=== PATIENT | male | born 1980 | race Caucasian/White ===

== ENCOUNTER 2021-01-15 20:05 | Emergency (ER) | payer SELFPAY ==
[~2021-01-15] VITALS: Ht 177.8 cm; Wt 100.0 kg
[2021-01-15] MEDS ORDERED: OXYCODONE HCL/ACETAMINOPHEN 5/325MG TABLET PO ONE (20:30)
[2021-01-16 01:38] VITALS: BP 112/66
== END 2021-01-16 01:39 | disposition home or self-care (01) ==
LOC: ER 20:05
DX: F11.23 Opioid dependence with withdrawal (principal); M79.18 Myalgia, other site
CPT/HCPCS: 73030; 73600; 93005; 99285

== ENCOUNTER 2023-02-21 12:54 | Emergency (ER) | payer MEDICAID, OTHER ==
[~2023-02-21] VITALS: Ht 170.2 cm; Wt 61.0 kg
[2023-02-21 13:04] VITALS: BP 131/76
[2023-02-21] MEDS ORDERED: SODIUM CHLORIDE 0.9% 1,000 ML IV ONE (13:15)
== END 2023-02-21 13:08 | disposition left against medical advice (07) ==
LOC: ER 12:54
DX: E11.65 Type 2 diabetes mellitus with hyperglycemia (principal); Z00.00 Encounter for general adult medical examination without abnormal findings
CPT/HCPCS: 99281; J7030

== ENCOUNTER 2023-02-21 17:54 | Inpatient (IN) | payer MEDICAID ==
[~2023-02-21] VITALS: Ht 167.6 cm; Wt 64.0 kg
[2023-02-21] MEDS ORDERED: SODIUM CHLORIDE 0.9% 1000ML BAG (SEPSIS BOLUS) IV ONE (19:30)
[2023-02-21 20:20] LABS: HEMATOCRIT. 37.1 % (42.0-52.0); HEMOGLOBIN. 11.9 g/dL (14.0-18.0); MEAN CORPUSCULAR HEMOGLOBIN 23.2 pg (28.0-32.0); MEAN CORPUSCULAR VOLUME 72.5 fL (80.0-94.0); MEAN PLATELET VOLUME 8.3 fl (7.4-10.4); PLATELET 246 x1000/uL (130-400); RED BLOOD CELL COUNT 5.12 mill/uL (4.7-6.1); RED CELL DISTRIBUTION WIDTH 16.2 % (11.6-14.6)
[2023-02-21 20:24] LABS: CLARITY URINE CLEAR (CLEAR); COLOR URINE YELLOW (YELLOW); KETONES URINE 1+ (NEGATIVE); LEUKOCYTE ESTERASE URINE NEGATIVE (NEGATIVE); NITRITE URINE NEGATIVE (NEGATIVE); OCCULT BLOOD URINE 1+ (NEGATIVE); PROTEIN URINE TRACE (NEGATIVE); SPECIFIC GRAVITY URINE 1.026 (1.005-1.030)
[2023-02-21 20:25] LABS: CHLORIDE 87 mEq/L (98-107); INR 1.3; PROTHROMBIN TIME 13.5 sec (9.6-11.0)
[2023-02-21 20:31] LABS: BETA HYDROXYBUTYRATE 3.3 mMol/L (0.0-0.3)
[2023-02-21] MEDS ORDERED: ACETAMINOPHEN 325MG TABLET PO ONE (21:00)
[2023-02-21] MEDS ORDERED: LEVOFLOXACIN 500MG PREMIX 100 ML IV ONE (21:00)
[2023-02-21] MEDS ORDERED: VANCOMYCIN 1G PREMIX 200 ML IV ONE (21:00)
[2023-02-21 21:08] LABS: PLATELET ESTIMATE NORMAL
[2023-02-21] MEDS ORDERED: POTASSIUM BICARB/CIT ACID 25 MEQ TABLET.EFF PO ONE (21:45)
[2023-02-21] MEDS ORDERED: POTASSIUM CHLORIDE 20MEQ TABLET SR PO NR (21:47)
[2023-02-21] MEDS ORDERED: INSULIN REGULAR (HUMULIN R) 300UNITS/3ML VIAL SUBCUT ONE (22:00)
[2023-02-22] MEDS ORDERED: KCL 20MEQ/100ML PREMIX 100 ML IV STA (01:07)
[2023-02-22] MEDS ORDERED: ACETAMINOPHEN 325MG TABLET PO PRN ×2 (01:15)
[2023-02-22] MEDS ORDERED: IPRATROPIUM/ALBUTEROL 0.5-3(2.5)MG/3ML NEB NEB PRN (01:15)
[2023-02-22] MEDS ORDERED: CLONIDINE 0.1MG TABLET PO PRN (01:15)
[2023-02-22] MEDS ORDERED: DOCUSATE SODIUM 100MG CAPSULE PO PRN (01:15)
[2023-02-22] MEDS ORDERED: SODIUM CHLORIDE 0.9% 1,000 ML IV SCH (01:15)
[2023-02-22] MEDS ORDERED: INSULIN REGULAR (HUMULIN R) 300UNITS/3ML VIAL SUBCUT ONE (01:15)
[2023-02-22] MEDS ORDERED: GUAIFENESIN 200MG/10ML SUGAR FREE UDC PO PRN (01:15)
[2023-02-22] MEDS ORDERED: DEXTROSE 50% WATER 50ML SYRINGE IV PRN (01:15)
[2023-02-22] MEDS ORDERED: SODIUM CHLORIDE 0.9% 1,000 ML IV ONE (01:30)
[2023-02-22 04:12] LABS: HEMATOCRIT. 33.6 % (42.0-52.0); HEMOGLOBIN. 10.8 g/dL (14.0-18.0); MEAN CORPUSCULAR HEMOGLOBIN 23.1 pg (28.0-32.0); MEAN CORPUSCULAR VOLUME 71.8 fL (80.0-94.0); MEAN PLATELET VOLUME 7.3 fl (7.4-10.4); PLATELET 182 x1000/uL (130-400); RED BLOOD CELL COUNT 4.68 mill/uL (4.7-6.1); RED CELL DISTRIBUTION WIDTH 15.6 % (11.6-14.6)
[2023-02-22 04:21] LABS: CHLORIDE 94 mEq/L (98-107)
[2023-02-22 04:30] VITALS: BP 142/85
[2023-02-22 04:31] LABS: AMYLASE 92 IU/L (25-115)
[2023-02-22 04:34] LABS: BG BASE EXCESS 6.4 mmol/L (-2.0-2.0); BG CARBOXYHEMOGLOBIN 0.4 % (0.5-1.5); BG DEOXYHEMOGLOBIN 2.6 % (0.0-5.0); BG FRACTION INSPIRED OXYGEN 21; BG HCO3 ACT 28.6 mmol/L (22.0-26.0); BG METHEMOGLOBIN 0.1 % (0.0-1.5); BG OXYGEN SATURATION 97.4 % (92.0-98.5); BG OXYHEMOGLOBIN 96.9 % (94.0-97.0); BG PCO2 32.8 mmHg (35.0-45.0); BG PH 7.559 (7.350-7.450); BG PO2 95.7 mmHg (75.0-100.0); BG SAMPLE SITE LEFT RADIAL; BG TOTAL HEMOGLOBIN 10.8 g/dL (12.0-18.0); BG VENT MODE ROOM AIR
[2023-02-22 04:55] LABS: PLATELET ESTIMATE NORMAL
[2023-02-22 05:03] LABS: FERRITIN 1504 ng/mL (22-322)
[2023-02-22 05:13] LABS: HEPATITIS B SURFACE ANTIGEN NEGATIVE
[2023-02-22 05:29] LABS: VITAMIN B12 SERUM > 2000.0 pg/mL (211-911)
[2023-02-22] MEDS ORDERED: VANCOMYCIN 1G PREMIX 200 ML IV SCH (06:30)
[2023-02-22] MEDS ORDERED: BLOOD SUGAR DIAGNOSTIC STRIP TEST SCH (06:30)
[2023-02-22] MEDS ORDERED: INSULIN LISPRO 100 UNITS/ML SUBCUT SCH (07:00)
[2023-02-22] MEDS ORDERED: KCL 20MEQ/100ML PREMIX 100 ML IV NR (08:30)
[2023-02-22] MEDS ORDERED: THIAMINE HCL 100MG TABLET PO SCH (09:00)
[2023-02-22] MEDS ORDERED: FOLIC ACID 1MG TABLET PO SCH (09:00)
[2023-02-22] MEDS ORDERED: MULTIVITAMINS,THER W-MINERALS TABLET PO SCH (09:00)
[2023-02-22] MEDS ORDERED: POTASSIUM PHOS,M-BASIC-D-BASIC 20 MMOL in DEXT 5% WATER 243.3333 ML IV NR (09:00)
[2023-02-22] MEDS ORDERED: PANTOPRAZOLE SODIUM 40 MG/VIAL IV SCH (09:00)
[2023-02-22 13:43] LABS: *AMPHETAMINES SCREEN URINE NEGATIVE (NEGATIVE); *BARBITURATES SCREEN URINE NEGATIVE (NEGATIVE); *BENZODIAZEPINES SCREEN URINE NEGATIVE (NEGATIVE); *COCAINE SCREEN URINE PRESUMTIVE POSITIVE (NEGATIVE); CANNABINOID URINE SCREEN NEGATIVE (NEGATIVE); METHADONE URINE SCREEN NEGATIVE (NEGATIVE); OPIATES URINE SCREEN PRESUMTIVE POSITIVE (NEGATIVE); PHENCYCLIDINE URINE SCREEN NEGATIVE (NEGATIVE)
[2023-02-22] MEDS ORDERED: LEVOFLOXACIN 500MG PREMIX 100 ML IV SCH (21:00)
[2023-02-24 06:11] LABS: HIV SCREEN 4G Non Reactive (Non Reactive)
== END 2023-02-22 07:11 | disposition left against medical advice (07) | DRG 720 ==
LOC: ER 17:54 → MICUSO 21:46 → EDBEDREQ 21:53 → EDBEDREQTM 21:53
PROVIDERS: ADMIT Internal Medicine; ATTEND Internal Medicine
DX: A41.9 Sepsis, unspecified organism (principal); G93.41 Metabolic encephalopathy; E11.10 Type 2 diabetes mellitus with ketoacidosis without coma; N39.0 Urinary tract infection, site not specified; D50.9 Iron deficiency anemia, unspecified; E87.6 Hypokalemia; E78.00 Pure hypercholesterolemia, unspecified; Z20.822 Contact with and (suspected) exposure to COVID-19; Z53.29 Procedure and treatment not carried out because of patient's decision for other reasons; E78.5 Hyperlipidemia, unspecified; Z79.4 Long term (current) use of insulin; Z88.0 Allergy status to penicillin
CPT/HCPCS: 36415; 36600; 71045; 74176; 76700; 80048; 80053; 80305; 81003; 82010; 82140; 82150; 82270; 82375; 82607; 82728; 82746; 82805; 82962; 83036; 83540; 83605; 83735; 84100; 84132; 84145; 85025; 86705; 86709; 86803; 87340; 87389; 87426; 87804; 93005; 99285; C9803; J1815; J1956; J3370; J3480; J3490; J7030; J7060

== ENCOUNTER 2023-02-22 12:25 | Inpatient (IN) | payer MEDICAID ==
[~2023-02-22] VITALS: Ht 160 cm; Wt 52.2 kg
[2023-02-22] MEDS ORDERED: LEVOFLOXACIN 500MG PREMIX 100 ML IV ONE (13:45)
[2023-02-22] MEDS ORDERED: LEVOFLOXACIN 250MG PREMIX 50 ML IV ONE (14:00)
[2023-02-22] MEDS ORDERED: SODIUM CHLORIDE 0.9% 1,000 ML IV ONE (14:00)
[2023-02-22] MEDS ORDERED: VANCOMYCIN 1G PREMIX 200 ML IV SCH (14:00)
[2023-02-22 18:16] LABS: HEMATOCRIT. 30.1 % (42.0-52.0); HEMOGLOBIN. 9.7 g/dL (14.0-18.0); MEAN CORPUSCULAR HEMOGLOBIN 23.3 pg (28.0-32.0); MEAN CORPUSCULAR VOLUME 72.4 fL (80.0-94.0); MEAN PLATELET VOLUME 7.9 fl (7.4-10.4); PLATELET 180 x1000/uL (130-400); RED BLOOD CELL COUNT 4.16 mill/uL (4.7-6.1); RED CELL DISTRIBUTION WIDTH 15.6 % (11.6-14.6)
[2023-02-22 18:28] LABS: CHLORIDE 99 mEq/L (98-107)
[2023-02-22 18:35] LABS: BETA HYDROXYBUTYRATE 4.6 mMol/L (0.0-0.3); ETHANOL BLOOD < 10 mg/dL
[2023-02-22 18:38] LABS: PLATELET ESTIMATE NORMAL
[2023-02-22 22:00] VITALS: BP 127/82
[2023-02-23] VITALS (7 sets, daily range): BP systolic 115–141; BP diastolic 72–86
[2023-02-23] MEDS ORDERED: DEXTROSE 50% WATER 50ML SYRINGE IV PRN (07:30)
[2023-02-23] MEDS: BLOOD SUGAR DIAGNOSTIC STRIP TEST SCH ×4 (07:58→20:33)
[2023-02-23] MEDS ORDERED: POTASSIUM CHLORIDE 20MEQ/PACKET PO NR ×2 (08:00→15:15)
[2023-02-23] MEDS ORDERED: SODIUM CHLORIDE 0.45% 1,000 ML IV ONE ×2 (08:00)
[2023-02-23] MEDS: INSULIN LISPRO 100 UNITS/ML SUBCUT SCH ×3 (08:15→20:34)
[2023-02-23] MEDS ORDERED: PANTOPRAZOLE 40MG DR TABLET PO SCH (09:00)
[2023-02-23] MEDS: KCL 20MEQ/100ML PREMIX 100 ML IV SCH ×4 (09:07→20:20)
[2023-02-23] MEDS ORDERED: GUAIFENESIN 200MG/10ML SUGAR FREE UDC PO PRN (09:30)
[2023-02-23] MEDS ORDERED: IPRATROPIUM/ALBUTEROL 0.5-3(2.5)MG/3ML NEB HHN PRN (09:30)
[2023-02-23] MEDS ORDERED: DOCUSATE SODIUM 100MG CAPSULE PO PRN (09:30)
[2023-02-23] MEDS ORDERED: ONDANSETRON HCL 4MG/2ML INJ IV PRN (09:30)
[2023-02-23] MEDS ORDERED: CLONIDINE 0.1MG TABLET PO PRN (09:30)
[2023-02-23] MEDS ORDERED: MAGNESIUM/ALUMINUM HYDROXIDE/SIMETHICONE 30ML UDC PO PRN (09:30)
[2023-02-23] MEDS ORDERED: INSULIN REGULAR (HUMULIN R) 300UNITS/3ML VIAL IV NR (10:00)
[2023-02-23 11:01] LABS: CHLORIDE 103 mEq/L (98-107)
[2023-02-23] MEDS: ENOXAPARIN 40MG/0.4ML SYR SUBCUT SCH (11:19)
[2023-02-23 13:35] LABS: CHLORIDE 98 mEq/L (98-107)
[2023-02-23 13:42] LABS: HEPATITIS B SURFACE ANTIGEN NEGATIVE
[2023-02-23 16:00] LABS: BG BASE EXCESS 7.9 mmol/L (-2.0-2.0); BG CARBOXYHEMOGLOBIN 0.3 % (0.5-1.5); BG DEOXYHEMOGLOBIN 1.5 % (0.0-5.0); BG FRACTION INSPIRED OXYGEN 21; BG HCO3 ACT 29.8 mmol/L (22.0-26.0); BG METHEMOGLOBIN 0.4 % (0.0-1.5); BG OXYGEN SATURATION 98.5 % (92.0-98.5); BG OXYHEMOGLOBIN 97.8 % (94.0-97.0); BG PCO2 31.6 mmHg (35.0-45.0); BG PH 7.592 (7.350-7.450); BG PO2 138.9 mmHg (75.0-100.0); BG SAMPLE SITE RIGHT RADIAL; BG TOTAL HEMOGLOBIN 10.3 g/dL (12.0-18.0); BG VENT MODE ROOM AIR
[2023-02-23] MEDS ORDERED: KETOROLAC 15MG/ML VIAL IV PRN (16:45)
[2023-02-23 18:25] LABS: PHOSPHORUS 0.9 mg/dL (2.5-4.9)
[2023-02-23] MEDS ORDERED: POTASSIUM PHOS,M-BASIC-D-BASIC 20 MMOL in DEXT 5% WATER 243.3333 ML IV NR (20:00)
[2023-02-23 20:31] LABS: CHLORIDE 101 mEq/L (98-107)
[2023-02-23] MEDS ORDERED: ZOLPIDEM TARTRATE 5MG TABLET PO PRN (21:00)
[2023-02-24] VITALS (11 sets, daily range): BP systolic 113–162; BP diastolic 52–86
[2023-02-24] MEDS ORDERED: LIDOCAINE HCL 1% 30ML VIAL (10MG/ML) INFIL NR
[2023-02-24] MEDS: VANCOMYCIN 750MG PREMIX 150 ML IV SCH ×3 (02:18→17:18)
[2023-02-24 06:58] LABS: BASOPHILS % 0.1 % (0.0-2.0); EOSINOPHILS % 0.1 % (0.0-5.0); HEMATOCRIT. 30.2 % (42.0-52.0); HEMOGLOBIN. 9.4 g/dL (14.0-18.0); LYMPHOCYTES % 7.5 % (20.0-50.0); MEAN CORPUSCULAR VOLUME 73.4 fL (80.0-94.0); MEAN PLATELET VOLUME 7.9 fl (7.4-10.4); MONOCYTES % 6.1 % (2.0-8.0); NEUTROPHILS % 86.2 % (40.0-76.0); PLATELET 150 x1000/uL (130-400); RED BLOOD CELL COUNT 4.11 mill/uL (4.7-6.1)
[2023-02-24] MEDS: BLOOD SUGAR DIAGNOSTIC STRIP TEST SCH ×4 (07:36→21:10)
[2023-02-24 07:42] LABS: CHLORIDE 96 mEq/L (98-107)
[2023-02-24 08:00] LABS: HDL CHOLESTEROL 20 mg/dL (40-59); LDL CHOLESTEROL 29 mg/dL (5-100); T4 FREE 0.82 ng/dL (0.76-1.46)
[2023-02-24] MEDS: PANTOPRAZOLE SODIUM 40 MG/VIAL IV SCH (10:07)
[2023-02-24] MEDS: KCL 20MEQ/100ML PREMIX 100 ML IV SCH ×4 (10:07→23:33)
[2023-02-24] MEDS: ENOXAPARIN 40MG/0.4ML SYR SUBCUT SCH (10:07)
[2023-02-24] MEDS: INSULIN LISPRO 100 UNITS/ML SUBCUT SCH ×4 (10:08→21:10)
[2023-02-24] MEDS ORDERED: POTASSIUM PHOS,M-BASIC-D-BASIC 15 MMOL in DEXT 5% WATER 245 ML IV SCH (12:00)
[2023-02-24] MEDS ORDERED: SODIUM CHLORIDE 0.9% 1,000 ML IV ONE (14:00)
[2023-02-24 14:34] LABS: CLARITY URINE CLEAR (CLEAR); COLOR URINE YELLOW (YELLOW); KETONES URINE 1+ (NEGATIVE); LEUKOCYTE ESTERASE URINE NEGATIVE (NEGATIVE); NITRITE URINE NEGATIVE (NEGATIVE); OCCULT BLOOD URINE 3+ (NEGATIVE); PROTEIN URINE NEGATIVE (NEGATIVE); SPECIFIC GRAVITY URINE 1.021 (1.005-1.030)
[2023-02-24 16:30] LABS: BG BASE EXCESS 5.1 mmol/L (-2.0-2.0); BG CARBOXYHEMOGLOBIN 0.3 % (0.5-1.5); BG DEOXYHEMOGLOBIN 2.4 % (0.0-5.0); BG HCO3 ACT 27.6 mmol/L (22.0-26.0); BG METHEMOGLOBIN 0.1 % (0.0-1.5); BG OXYGEN SATURATION 97.6 % (92.0-98.5); BG OXYHEMOGLOBIN 97.2 % (94.0-97.0); BG PCO2 32.8 mmHg (35.0-45.0); BG PH 7.543 (7.350-7.450); BG PO2 101.3 mmHg (75.0-100.0); BG SAMPLE SITE RIGHT RADIAL; BG TOTAL HEMOGLOBIN 10.2 g/dL (12.0-18.0); BG VENT MODE ROOM AIR
[2023-02-24 21:06] LABS: HEMATOCRIT 28.2 % (42.0-52.0); HEMOGLOBIN 9.2 g/dL (14.0-18.0)
[2023-02-24 21:10] LABS: CHLORIDE 102 mEq/L (98-107)
[2023-02-24] MEDS: INSULIN GLARGINE 100 UNITS/ML SUBCUT SCH (21:10)
[2023-02-24 22:28] LABS: BASOPHILS % 0.1 % (0.0-2.0); EOSINOPHILS % 0.2 % (0.0-5.0); HEMATOCRIT. 28.5 % (42.0-52.0); HEMOGLOBIN. 9.3 g/dL (14.0-18.0); LYMPHOCYTES % 14.6 % (20.0-50.0); MEAN CORPUSCULAR HEMOGLOBIN 23.6 pg (28.0-32.0); MEAN CORPUSCULAR VOLUME 72.5 fL (80.0-94.0); MEAN PLATELET VOLUME 8.4 fl (7.4-10.4); MONOCYTES % 6.2 % (2.0-8.0); NEUTROPHILS % 78.9 % (40.0-76.0); PLATELET 202 x1000/uL (130-400); RED BLOOD CELL COUNT 3.93 mill/uL (4.7-6.1); RED CELL DISTRIBUTION WIDTH 15.9 % (11.6-14.6)
[2023-02-25] VITALS: BP 132/77
[2023-02-25 01:18] LABS: HEMATOCRIT 27.6 % (42.0-52.0); HEMOGLOBIN 8.8 g/dL (14.0-18.0)
[2023-02-25] MEDS: VANCOMYCIN 750MG PREMIX 150 ML IV SCH ×3 (02:27→20:54)
[2023-02-25 04:00] VITALS: BP 125/66
[2023-02-25] MEDS: BLOOD SUGAR DIAGNOSTIC STRIP TEST SCH ×4 (07:11→20:46)
[2023-02-25 08:00] VITALS: BP 119/56
[2023-02-25] MEDS ORDERED: INSULIN REGULAR (HUMULIN R) 300UNITS/3ML VIAL IV SCH (08:00)
[2023-02-25] MEDS: INSULIN LISPRO 100 UNITS/ML SUBCUT SCH ×4 (09:46→20:56)
[2023-02-25 12:29] VITALS: BP 100/56
[2023-02-25] MEDS: LISINOPRIL 2.5MG TABLET PO SCH ×2 (12:29→17:29)
[2023-02-25] MEDS: ENOXAPARIN 40MG/0.4ML SYR SUBCUT SCH (12:35)
[2023-02-25] MEDS: ACETAMINOPHEN 325MG TABLET PO PRN (12:39)
[2023-02-25] MEDS: PANTOPRAZOLE SODIUM 40 MG/VIAL IV SCH (12:53)
[2023-02-25 16:00] VITALS: BP 112/69
[2023-02-25 16:49] LABS: BASOPHILS % 0.2 % (0.0-2.0); EOSINOPHILS % 0.1 % (0.0-5.0); HEMATOCRIT. 24.9 % (42.0-52.0); LYMPHOCYTES % 9.8 % (20.0-50.0); MEAN CORPUSCULAR HEMOGLOBIN 23.4 pg (28.0-32.0); MEAN CORPUSCULAR VOLUME 72.6 fL (80.0-94.0); MONOCYTES % 5.9 % (2.0-8.0); PLATELET 198 x1000/uL (130-400); RED BLOOD CELL COUNT 3.43 mill/uL (4.7-6.1)
[2023-02-25 16:56] LABS: CHLORIDE 104 mEq/L (98-107)
[2023-02-25 17:01] LABS: PHOSPHORUS 1.9 mg/dL (2.5-4.9)
[2023-02-25 20:00] VITALS: BP 114/62
[2023-02-25 21:32] LABS: HEMATOCRIT 25.5 % (42.0-52.0)
[2023-02-26] VITALS: BP 93/66
[2023-02-26 00:54] LABS: HEMATOCRIT 25.6 % (42.0-52.0); HEMOGLOBIN 8.1 g/dL (14.0-18.0)
[2023-02-26 04:00] VITALS: BP 114/65
[2023-02-26] MEDS: VANCOMYCIN 750MG PREMIX 150 ML IV SCH ×3 (04:19→18:17)
[2023-02-26] MEDS: BLOOD SUGAR DIAGNOSTIC STRIP TEST SCH ×4 (07:01→21:27)
[2023-02-26 07:30] LABS: BASOPHILS % 0.2 % (0.0-2.0); EOSINOPHILS % 0.2 % (0.0-5.0); HEMATOCRIT. 25.8 % (42.0-52.0); HEMOGLOBIN. 8.2 g/dL (14.0-18.0); MEAN CORPUSCULAR HEMOGLOBIN 22.9 pg (28.0-32.0); MEAN CORPUSCULAR VOLUME 72.6 fL (80.0-94.0); MEAN PLATELET VOLUME 8.7 fl (7.4-10.4); NEUTROPHILS % 83.6 % (40.0-76.0); PLATELET 197 x1000/uL (130-400); RED BLOOD CELL COUNT 3.56 mill/uL (4.7-6.1); RED CELL DISTRIBUTION WIDTH 15.6 % (11.6-14.6)
[2023-02-26 07:53] LABS: CHLORIDE 103 mEq/L (98-107)
[2023-02-26 08:00] VITALS: BP 106/63
[2023-02-26] MEDS: LISINOPRIL 2.5MG TABLET PO SCH (09:00)
[2023-02-26] MEDS: PANTOPRAZOLE SODIUM 40 MG/VIAL IV SCH (09:09)
[2023-02-26] MEDS: INSULIN LISPRO 100 UNITS/ML SUBCUT SCH ×4 (09:09→21:26)
[2023-02-26] MEDS ORDERED: POTASSIUM CHLORIDE 20MEQ TABLET SR PO NR (10:45)
[2023-02-26 12:00] VITALS: BP 104/59
[2023-02-26] MEDS: ENOXAPARIN 40MG/0.4ML SYR SUBCUT SCH (12:05)
[2023-02-26] MEDS ORDERED: POTASSIUM PHOS,M-BASIC-D-BASIC 10 MMOL in DEXT 5% WATER 246.6667 ML IV NR (13:00)
[2023-02-26] MEDS ORDERED: INSULIN REGULAR (HUMULIN R) 300UNITS/3ML VIAL IV NR (13:45)
[2023-02-26 16:00] VITALS: BP 109/53
[2023-02-26 20:00] VITALS: BP 96/56
[2023-02-26] MEDS: BACITRACIN 15GM TUBE TOP SCH (21:24)
[2023-02-26] MEDS: INSULIN GLARGINE 100 UNITS/ML SUBCUT SCH (21:25)
[2023-02-27] VITALS: BP 88/52
[2023-02-27 04:00] VITALS: BP 97/60
[2023-02-27 04:07] LABS: HIV SCREEN 4G Non Reactive (Non Reactive)
[2023-02-27 05:53] LABS: BASOPHILS % 0.1 % (0.0-2.0); EOSINOPHILS % 0.4 % (0.0-5.0); HEMATOCRIT. 22.7 % (42.0-52.0); HEMOGLOBIN. 7.3 g/dL (14.0-18.0); LYMPHOCYTES % 12.7 % (20.0-50.0); MEAN PLATELET VOLUME 7.7 fl (7.4-10.4); MONOCYTES % 4.8 % (2.0-8.0); PLATELET 214 x1000/uL (130-400); RED BLOOD CELL COUNT 3.15 mill/uL (4.7-6.1); RED CELL DISTRIBUTION WIDTH 15.8 % (11.6-14.6)
[2023-02-27 05:56] LABS: CHLORIDE 104 mEq/L (98-107)
[2023-02-27 06:12] LABS: PHOSPHORUS 1.9 mg/dL (2.5-4.9)
[2023-02-27] MEDS: BLOOD SUGAR DIAGNOSTIC STRIP TEST SCH ×4 (07:04→21:32)
[2023-02-27] MEDS: INSULIN LISPRO 100 UNITS/ML SUBCUT SCH ×4 (07:20→21:29)
[2023-02-27 08:00] VITALS: BP 101/57
[2023-02-27] MEDS ORDERED: POTASSIUM-SODIUM PHOSPHATE POWDER PACKET PO NR (08:00)
[2023-02-27] MEDS: LISINOPRIL 2.5MG TABLET PO SCH (10:05)
[2023-02-27] MEDS: FAMOTIDINE 20MG TABLET PO SCH ×2 (10:05→21:30)
[2023-02-27] MEDS: BACITRACIN 15GM TUBE TOP SCH ×2 (10:24→21:31)
[2023-02-27] MEDS: KCL 20MEQ/100ML PREMIX 100 ML IV SCH ×2 (10:26→11:00)
[2023-02-27] MEDS: ACETAMINOPHEN 325MG TABLET PO PRN (10:28)
[2023-02-27 12:00] VITALS: BP 121/65
[2023-02-27] MEDS: ENOXAPARIN 40MG/0.4ML SYR SUBCUT SCH (13:33)
[2023-02-27] MEDS ORDERED: POTASSIUM CHLORIDE 20MEQ TABLET SR PO NR (15:30)
[2023-02-27 16:00] VITALS: BP 103/53
[2023-02-27 20:00] VITALS: BP 111/54
[2023-02-27] MEDS: INSULIN GLARGINE 100 UNITS/ML SUBCUT SCH (21:30)
[2023-02-27] MEDS ORDERED: DAPTOMYCIN 400 MG in SODIUM CHLORIDE 0.9% 50 ML IV SCH (22:00)
[2023-02-28] VITALS: BP 107/57
[2023-02-28 04:00] VITALS: BP 108/58
[2023-02-28 06:33] LABS: BASOPHILS % 0.1 % (0.0-2.0); EOSINOPHILS % 0.2 % (0.0-5.0); HEMATOCRIT. 22.9 % (42.0-52.0); HEMOGLOBIN. 7.3 g/dL (14.0-18.0); LYMPHOCYTES % 10.6 % (20.0-50.0); MEAN CORPUSCULAR HEMOGLOBIN 23.3 pg (28.0-32.0); MEAN CORPUSCULAR VOLUME 73.1 fL (80.0-94.0); MEAN PLATELET VOLUME 7.9 fl (7.4-10.4); MONOCYTES % 4.9 % (2.0-8.0); NEUTROPHILS % 84.2 % (40.0-76.0); PLATELET 203 x1000/uL (130-400); RED BLOOD CELL COUNT 3.13 mill/uL (4.7-6.1); RED CELL DISTRIBUTION WIDTH 15.7 % (11.6-14.6)
[2023-02-28] MEDS: BLOOD SUGAR DIAGNOSTIC STRIP TEST SCH ×4 (06:50→20:37)
[2023-02-28 06:53] LABS: CHLORIDE 105 mEq/L (98-107)
[2023-02-28 07:01] LABS: CREATINE KINASE 57 IU/L (39-308); PHOSPHORUS 2.4 mg/dL (2.5-4.9)
[2023-02-28] MEDS: INSULIN LISPRO 100 UNITS/ML SUBCUT SCH ×4 (07:20→21:10)
[2023-02-28 08:00] VITALS: BP 111/65
[2023-02-28] MEDS ORDERED: POTASSIUM-SODIUM PHOSPHATE POWDER PACKET PO NR (08:00)
[2023-02-28] MEDS ORDERED: TETRACAINE/BENZOCAINE/BUTAMBEN 20 GM SPRAY MM ONE (08:40)
[2023-02-28] MEDS ORDERED: LIDOCAINE 2% 6ML GLYDO MM ONE (08:40)
[2023-02-28] MEDS: LISINOPRIL 2.5MG TABLET PO SCH (08:48)
[2023-02-28] MEDS: FAMOTIDINE 20MG TABLET PO SCH ×2 (08:48→21:01)
[2023-02-28] MEDS: BACITRACIN 15GM TUBE TOP SCH ×2 (09:00→21:12)
[2023-02-28] MEDS ORDERED: FENTANYL CITRATE/PF 50MCG/ML 2ML VIAL ONE (09:04)
[2023-02-28] MEDS ORDERED: DIPHENHYDRAMINE 50MG/ML VIAL ONE (09:04)
[2023-02-28] MEDS ORDERED: MIDAZOLAM HCL 2 MG/2 ML VIAL ONE (09:05)
[2023-02-28] MEDS: ENOXAPARIN 40MG/0.4ML SYR SUBCUT SCH (11:58)
[2023-02-28 12:00] VITALS: BP 115/63
[2023-02-28] MEDS ORDERED: LIDOCAINE HCL 1% 10 MG/ML 10ML VIAL ONE (12:28)
[2023-02-28] MEDS ORDERED: SODIUM CHLORIDE 0.9% 500 ML IV ONE (14:30)
[2023-02-28 16:00] VITALS: BP 114/64
[2023-02-28] MEDS: CEFAZOLIN 2,000 MG in DEXT 5% WATER 100 ML IV SCH (19:12)
[2023-02-28 20:00] VITALS: BP 127/69
[2023-02-28] MEDS: ACETAMINOPHEN 325MG TABLET PO PRN (21:02)
[2023-02-28] MEDS: INSULIN GLARGINE 100 UNITS/ML SUBCUT SCH (21:11)
[2023-03-01] VITALS: BP 118/73
[2023-03-01] MEDS: CEFAZOLIN 2,000 MG in DEXT 5% WATER 100 ML IV SCH ×3 (02:59→19:12)
[2023-03-01 03:59] VITALS: BP 110/57
[2023-03-01 05:44] LABS: BASOPHILS % 0.1 % (0.0-2.0); EOSINOPHILS % 0.2 % (0.0-5.0); HEMATOCRIT. 22.7 % (42.0-52.0); HEMOGLOBIN. 7.4 g/dL (14.0-18.0); LYMPHOCYTES % 9.9 % (20.0-50.0); MEAN CORPUSCULAR HEMOGLOBIN 23.5 pg (28.0-32.0); MEAN CORPUSCULAR VOLUME 72.6 fL (80.0-94.0); MEAN PLATELET VOLUME 7.5 fl (7.4-10.4); MONOCYTES % 6.3 % (2.0-8.0); NEUTROPHILS % 83.5 % (40.0-76.0); PLATELET 222 x1000/uL (130-400); RED BLOOD CELL COUNT 3.13 mill/uL (4.7-6.1); RED CELL DISTRIBUTION WIDTH 15.7 % (11.6-14.6)
[2023-03-01 05:53] LABS: CHLORIDE 105 mEq/L (98-107)
[2023-03-01] MEDS: BLOOD SUGAR DIAGNOSTIC STRIP TEST SCH ×4 (06:55→21:31)
[2023-03-01] MEDS: INSULIN LISPRO 100 UNITS/ML SUBCUT SCH ×4 (07:04→21:39)
[2023-03-01 08:00] VITALS: BP 104/67
[2023-03-01] MEDS: LISINOPRIL 2.5MG TABLET PO SCH (09:00)
[2023-03-01] MEDS: FAMOTIDINE 20MG TABLET PO SCH ×2 (10:31→21:37)
[2023-03-01] MEDS: BACITRACIN 15GM TUBE TOP SCH ×2 (10:31→21:38)
[2023-03-01] MEDS: ENOXAPARIN 40MG/0.4ML SYR SUBCUT SCH (10:31)
[2023-03-01 12:00] VITALS: BP 101/51
[2023-03-01] MEDS ORDERED: POTASSIUM PHOS,M-BASIC-D-BASIC 15 MMOL in DEXT 5% WATER 245 ML IV NR (15:00)
[2023-03-01 16:00] VITALS: BP 102/48
[2023-03-01 20:00] VITALS: BP 105/61
[2023-03-01] MEDS: KETOROLAC 15MG/ML VIAL IV PRN (21:37)
[2023-03-01] MEDS: INSULIN GLARGINE 100 UNITS/ML SUBCUT SCH (21:39)
[2023-03-02] VITALS (11 sets, daily range): BP systolic 87–128; BP diastolic 42–67
[2023-03-02] MEDS: CEFAZOLIN 2,000 MG in DEXT 5% WATER 100 ML IV SCH ×3 (02:05→19:13)
[2023-03-02] MEDS: KETOROLAC 15MG/ML VIAL IV PRN (04:17)
[2023-03-02 05:31] LABS: BASOPHILS % 0.1 % (0.0-2.0); EOSINOPHILS % 0.4 % (0.0-5.0); LYMPHOCYTES % 16.3 % (20.0-50.0); MEAN CORPUSCULAR HEMOGLOBIN 23.4 pg (28.0-32.0); MEAN CORPUSCULAR VOLUME 72.8 fL (80.0-94.0); MEAN PLATELET VOLUME 7.7 fl (7.4-10.4); MONOCYTES % 7.1 % (2.0-8.0); NEUTROPHILS % 76.1 % (40.0-76.0); PLATELET 210 x1000/uL (130-400); RED BLOOD CELL COUNT 2.89 mill/uL (4.7-6.1); RED CELL DISTRIBUTION WIDTH 15.7 % (11.6-14.6)
[2023-03-02 05:35] LABS: CHLORIDE 107 mEq/L (98-107)
[2023-03-02 05:39] LABS: PHOSPHORUS 2.3 mg/dL (2.5-4.9)
[2023-03-02 05:45] LABS: HEMATOCRIT. 21.1 % (42.0-52.0); HEMOGLOBIN. 6.8 g/dL (14.0-18.0)
[2023-03-02] MEDS: BLOOD SUGAR DIAGNOSTIC STRIP TEST SCH ×4 (06:50→21:00)
[2023-03-02] MEDS: INSULIN LISPRO 100 UNITS/ML SUBCUT SCH ×7 (07:20→22:04)
[2023-03-02] MEDS: FAMOTIDINE 20MG TABLET PO SCH ×2 (08:02→22:01)
[2023-03-02] MEDS: LISINOPRIL 2.5MG TABLET PO SCH (08:02)
[2023-03-02] MEDS: BACITRACIN 15GM TUBE TOP SCH ×2 (08:03→21:00)
[2023-03-02] MEDS ORDERED: POTASSIUM PHOS,M-BASIC-D-BASIC 15 MMOL in DEXT 5% WATER 245 ML IV NR (09:30)
[2023-03-02] MEDS: INSULIN GLARGINE 100 UNITS/ML SUBCUT SCH (22:04)
[2023-03-02] MEDS: ACETAMINOPHEN 325MG TABLET PO PRN (22:07)
[2023-03-03] VITALS: BP 105/59
[2023-03-03 04:00] VITALS: BP 115/65
[2023-03-03] MEDS: CEFAZOLIN 2,000 MG in DEXT 5% WATER 100 ML IV SCH ×3 (06:04→18:02)
[2023-03-03] MEDS: BLOOD SUGAR DIAGNOSTIC STRIP TEST SCH ×4 (06:04→21:00)
[2023-03-03] MEDS: INSULIN LISPRO 100 UNITS/ML SUBCUT SCH ×7 (07:20→22:17)
[2023-03-03 07:53] LABS: BASOPHILS % 0.3 % (0.0-2.0); EOSINOPHILS % 0.3 % (0.0-5.0); HEMATOCRIT. 23.9 % (42.0-52.0); HEMOGLOBIN. 7.8 g/dL (14.0-18.0); LYMPHOCYTES % 13.7 % (20.0-50.0); MEAN CORPUSCULAR HEMOGLOBIN 23.9 pg (28.0-32.0); MEAN CORPUSCULAR VOLUME 73.4 fL (80.0-94.0); MEAN PLATELET VOLUME 7.5 fl (7.4-10.4); MONOCYTES % 7.9 % (2.0-8.0); NEUTROPHILS % 77.8 % (40.0-76.0); PLATELET 229 x1000/uL (130-400); RED BLOOD CELL COUNT 3.25 mill/uL (4.7-6.1); RED CELL DISTRIBUTION WIDTH 16.2 % (11.6-14.6)
[2023-03-03 08:00] VITALS: BP 130/100
[2023-03-03] MEDS: LISINOPRIL 2.5MG TABLET PO SCH (08:23)
[2023-03-03] MEDS: FAMOTIDINE 20MG TABLET PO SCH ×2 (08:23→22:14)
[2023-03-03 08:32] LABS: CHLORIDE 103 mEq/L (98-107)
[2023-03-03] MEDS: BACITRACIN 15GM TUBE TOP SCH ×2 (09:00→22:19)
[2023-03-03 12:17] VITALS: BP 123/71
[2023-03-03 16:00] VITALS: BP 107/63
[2023-03-03 20:00] VITALS: BP 103/56
[2023-03-03] MEDS: INSULIN GLARGINE 100 UNITS/ML SUBCUT SCH (22:17)
[2023-03-03] MEDS: KETOROLAC 15MG/ML VIAL IV PRN (22:49)
[2023-03-04] VITALS (7 sets, daily range): BP systolic 94–131; BP diastolic 52–81
[2023-03-04] MEDS: CEFAZOLIN 2,000 MG in DEXT 5% WATER 100 ML IV SCH ×3 (01:30→17:41)
[2023-03-04] MEDS: INSULIN LISPRO 100 UNITS/ML SUBCUT SCH ×7 (07:20→22:00)
[2023-03-04 07:35] LABS: BASOPHILS % 0.4 % (0.0-2.0); EOSINOPHILS % 0.4 % (0.0-5.0); HEMOGLOBIN. 8.2 g/dL (14.0-18.0); LYMPHOCYTES % 18.3 % (20.0-50.0); MEAN CORPUSCULAR HEMOGLOBIN 24.1 pg (28.0-32.0); MEAN CORPUSCULAR VOLUME 73.4 fL (80.0-94.0); MEAN PLATELET VOLUME 7.2 fl (7.4-10.4); MONOCYTES % 7.8 % (2.0-8.0); NEUTROPHILS % 73.1 % (40.0-76.0); PLATELET 257 x1000/uL (130-400); RED CELL DISTRIBUTION WIDTH 16.2 % (11.6-14.6)
[2023-03-04] MEDS: BLOOD SUGAR DIAGNOSTIC STRIP TEST SCH ×4 (07:35→21:49)
[2023-03-04 07:53] LABS: CHLORIDE 105 mEq/L (98-107)
[2023-03-04 08:01] LABS: PHOSPHORUS 2.7 mg/dL (2.5-4.9)
[2023-03-04] MEDS: FAMOTIDINE 20MG TABLET PO SCH ×2 (08:59→20:41)
[2023-03-04] MEDS: BACITRACIN 15GM TUBE TOP SCH ×2 (08:59→21:59)
[2023-03-04] MEDS: LISINOPRIL 2.5MG TABLET PO SCH (08:59)
[2023-03-04] MEDS: KETOROLAC 15MG/ML VIAL IV PRN (11:08)
[2023-03-04] MEDS ORDERED: KETOROLAC 15MG/ML VIAL IV PRN (17:50)
[2023-03-04] MEDS: DICLOFENAC SODIUM 75MG DR (EC) TABLET PO SCH (20:40)
[2023-03-04] MEDS: LIDOCAINE 5% PATCH TOP PRN (20:50)
[2023-03-04] MEDS: INSULIN GLARGINE 100 UNITS/ML SUBCUT SCH (22:01)
[2023-03-05] MEDS: CEFAZOLIN 2,000 MG in DEXT 5% WATER 100 ML IV SCH ×3 (01:38→19:41)
[2023-03-05 04:00] VITALS: BP 101/63
[2023-03-05 06:06] LABS: HEMATOCRIT 23.4 % (42.0-52.0); HEMOGLOBIN 7.6 g/dL (14.0-18.0); MEAN CORPUSCULAR VOLUME 74.1 fL (80.0-94.0); PLATELET 258 x1000/uL (130-400); RED BLOOD CELL COUNT 3.15 mill/uL (4.7-6.1); RED CELL DISTRIBUTION WIDTH 16.2 % (11.6-14.6)
[2023-03-05 06:15] LABS: CHLORIDE 103 mEq/L (98-107)
[2023-03-05] MEDS: BLOOD SUGAR DIAGNOSTIC STRIP TEST SCH ×4 (06:43→22:10)
[2023-03-05] MEDS: INSULIN LISPRO 100 UNITS/ML SUBCUT SCH ×7 (07:05→22:45)
[2023-03-05 08:00] VITALS: BP 107/71
[2023-03-05] MEDS: LISINOPRIL 2.5MG TABLET PO SCH (09:00)
[2023-03-05] MEDS: FAMOTIDINE 20MG TABLET PO SCH ×2 (10:10→22:42)
[2023-03-05] MEDS: DICLOFENAC SODIUM 75MG DR (EC) TABLET PO SCH ×2 (10:13→22:42)
[2023-03-05 12:00] VITALS: BP 119/74
[2023-03-05] MEDS: BACITRACIN 15GM TUBE TOP SCH ×2 (13:27→22:43)
[2023-03-05 16:00] VITALS: BP 98/69
[2023-03-05 20:00] VITALS: BP 113/68
[2023-03-05] MEDS: LIDOCAINE 5% PATCH TOP PRN (22:44)
[2023-03-05] MEDS: INSULIN GLARGINE 100 UNITS/ML SUBCUT SCH (22:46)
[2023-03-06] VITALS: BP 112/68
[2023-03-06] MEDS: CEFAZOLIN 2,000 MG in DEXT 5% WATER 100 ML IV SCH ×3 (01:42→17:14)
[2023-03-06 04:00] VITALS: BP 113/72
[2023-03-06] MEDS: INSULIN LISPRO 100 UNITS/ML SUBCUT SCH ×7 (06:18→23:19)
[2023-03-06] MEDS: BLOOD SUGAR DIAGNOSTIC STRIP TEST SCH ×4 (06:19→21:00)
[2023-03-06 06:43] LABS: BASOPHILS % 0.5 % (0.0-2.0); EOSINOPHILS % 1.2 % (0.0-5.0); HEMATOCRIT. 23.8 % (42.0-52.0); HEMOGLOBIN. 7.8 g/dL (14.0-18.0); LYMPHOCYTES % 18.6 % (20.0-50.0); MEAN CORPUSCULAR HEMOGLOBIN 24.3 pg (28.0-32.0); MEAN CORPUSCULAR VOLUME 74.1 fL (80.0-94.0); MEAN PLATELET VOLUME 7.4 fl (7.4-10.4); MONOCYTES % 6.6 % (2.0-8.0); NEUTROPHILS % 73.1 % (40.0-76.0); PLATELET 255 x1000/uL (130-400); RED BLOOD CELL COUNT 3.22 mill/uL (4.7-6.1); RED CELL DISTRIBUTION WIDTH 16.6 % (11.6-14.6)
[2023-03-06 07:20] LABS: CHLORIDE 107 mEq/L (98-107)
[2023-03-06] MEDS: LISINOPRIL 2.5MG TABLET PO SCH (07:54)
[2023-03-06] MEDS: FAMOTIDINE 20MG TABLET PO SCH ×2 (07:54→22:35)
[2023-03-06] MEDS: DICLOFENAC SODIUM 75MG DR (EC) TABLET PO SCH ×2 (07:54→22:35)
[2023-03-06] MEDS: BACITRACIN 15GM TUBE TOP SCH ×2 (07:55→22:36)
[2023-03-06 08:00] VITALS: BP 115/67
[2023-03-06 12:00] VITALS: BP 133/77
[2023-03-06] MEDS: ACETAMINOPHEN 325MG TABLET PO PRN ×2 (14:39→22:35)
[2023-03-06 16:00] VITALS: BP 125/77
[2023-03-06 20:00] VITALS: BP 115/51
[2023-03-06] MEDS: LIDOCAINE 5% PATCH TOP PRN (22:35)
[2023-03-06] MEDS: INSULIN GLARGINE 100 UNITS/ML SUBCUT SCH (23:18)
[2023-03-07] VITALS: BP 113/63
[2023-03-07 04:00] VITALS: BP 103/53
[2023-03-07] MEDS: CEFAZOLIN 2,000 MG in DEXT 5% WATER 100 ML IV SCH ×3 (04:03→17:42)
[2023-03-07 06:29] LABS: HEMATOCRIT 22.4 % (42.0-52.0); HEMOGLOBIN 7.2 g/dL (14.0-18.0); MEAN CORPUSCULAR HEMOGLOBIN 24.1 pg (28.0-32.0); MEAN CORPUSCULAR VOLUME 74.5 fL (80.0-94.0); PLATELET 233 x1000/uL (130-400); RED BLOOD CELL COUNT 3.01 mill/uL (4.7-6.1); RED CELL DISTRIBUTION WIDTH 17.1 % (11.6-14.6)
[2023-03-07] MEDS: BLOOD SUGAR DIAGNOSTIC STRIP TEST SCH ×4 (06:36→21:48)
[2023-03-07] MEDS: INSULIN LISPRO 100 UNITS/ML SUBCUT SCH ×7 (06:37→21:47)
[2023-03-07 06:44] LABS: CHLORIDE 104 mEq/L (98-107)
[2023-03-07 08:00] VITALS: BP 108/56
[2023-03-07] MEDS: LISINOPRIL 2.5MG TABLET PO SCH (08:48)
[2023-03-07] MEDS: FAMOTIDINE 20MG TABLET PO SCH ×2 (08:55→21:46)
[2023-03-07] MEDS: BACITRACIN 15GM TUBE TOP SCH ×2 (08:55→21:48)
[2023-03-07] MEDS: DICLOFENAC SODIUM 75MG DR (EC) TABLET PO SCH ×2 (09:09→21:46)
[2023-03-07 11:20] VITALS: BP 112/46
[2023-03-07 16:00] VITALS: BP 118/55
[2023-03-07 20:00] VITALS: BP 120/64
[2023-03-07] MEDS: LIDOCAINE 5% PATCH TOP PRN (21:46)
[2023-03-07] MEDS: ACETAMINOPHEN 325MG TABLET PO PRN (21:54)
[2023-03-07] MEDS ORDERED: INSULIN GLARGINE 100 UNITS/ML SUBCUT SCH (22:00)
[2023-03-08] VITALS: BP 120/61
[2023-03-08] MEDS: CEFAZOLIN 2,000 MG in DEXT 5% WATER 100 ML IV SCH ×2 (02:31→10:00)
[2023-03-08 04:00] VITALS: BP 118/64
[2023-03-08] MEDS: ACETAMINOPHEN 325MG TABLET PO PRN ×2 (06:37→16:20)
[2023-03-08] MEDS: BLOOD SUGAR DIAGNOSTIC STRIP TEST SCH ×4 (07:08→21:35)
[2023-03-08] MEDS: INSULIN LISPRO 100 UNITS/ML SUBCUT SCH ×7 (07:08→21:41)
[2023-03-08 08:00] VITALS: BP 128/75
[2023-03-08] MEDS: FAMOTIDINE 20MG TABLET PO SCH ×2 (08:18→21:30)
[2023-03-08] MEDS: DICLOFENAC SODIUM 75MG DR (EC) TABLET PO SCH ×2 (08:18→21:34)
[2023-03-08] MEDS: LISINOPRIL 2.5MG TABLET PO SCH (08:19)
[2023-03-08] MEDS: BACITRACIN 15GM TUBE TOP SCH ×2 (09:00→21:35)
[2023-03-08 09:06] LABS: HEMATOCRIT 24.6 % (42.0-52.0); MEAN CORPUSCULAR HEMOGLOBIN 24.5 pg (28.0-32.0); MEAN CORPUSCULAR VOLUME 75.5 fL (80.0-94.0); PLATELET 263 x1000/uL (130-400); RED BLOOD CELL COUNT 3.26 mill/uL (4.7-6.1); RED CELL DISTRIBUTION WIDTH 17.4 % (11.6-14.6)
[2023-03-08 09:16] LABS: CHLORIDE 106 mEq/L (98-107)
[2023-03-08 12:00] VITALS: BP 119/67
[2023-03-08 16:00] VITALS: BP 127/82
[2023-03-08 20:00] VITALS: BP 94/59
[2023-03-08] MEDS: LIDOCAINE 5% PATCH TOP PRN (21:35)
[2023-03-08] MEDS: INSULIN GLARGINE 100 UNITS/ML SUBCUT SCH (21:41)
[2023-03-09] VITALS: BP 118/58
[2023-03-09 04:00] VITALS: BP 119/67
[2023-03-09] MEDS: INSULIN LISPRO 100 UNITS/ML SUBCUT SCH ×7 (06:05→21:00)
[2023-03-09] MEDS: BLOOD SUGAR DIAGNOSTIC STRIP TEST SCH ×4 (07:54→21:00)
[2023-03-09] MEDS: INSULIN GLARGINE 100 UNITS/ML SUBCUT SCH ×2 (07:56→22:48)
[2023-03-09 08:00] VITALS: BP 129/57
[2023-03-09] MEDS: CEFAZOLIN 2,000 MG in DEXT 5% WATER 100 ML IV SCH ×3 (09:42→17:41)
[2023-03-09] MEDS: LISINOPRIL 2.5MG TABLET PO SCH (09:44)
[2023-03-09] MEDS: FAMOTIDINE 20MG TABLET PO SCH ×2 (09:44→22:42)
[2023-03-09] MEDS: DICLOFENAC SODIUM 75MG DR (EC) TABLET PO SCH ×2 (09:44→21:00)
[2023-03-09] MEDS: BACITRACIN 15GM TUBE TOP SCH ×2 (09:45→21:00)
[2023-03-09 10:21] LABS: HEMATOCRIT 26.8 % (42.0-52.0); HEMOGLOBIN 8.5 g/dL (14.0-18.0); MEAN CORPUSCULAR HEMOGLOBIN 24.1 pg (28.0-32.0); MEAN CORPUSCULAR VOLUME 75.5 fL (80.0-94.0); PLATELET 286 x1000/uL (130-400); RED BLOOD CELL COUNT 3.55 mill/uL (4.7-6.1); RED CELL DISTRIBUTION WIDTH 17.8 % (11.6-14.6)
[2023-03-09 11:03] LABS: CHLORIDE 108 mEq/L (98-107)
[2023-03-09 12:00] VITALS: BP 113/58
[2023-03-09 16:00] VITALS: BP 119/57
[2023-03-09 20:00] VITALS: BP 98/55
[2023-03-09] MEDS: ENOXAPARIN 40MG/0.4ML SYR SUBCUT SCH (21:00)
[2023-03-10] VITALS: BP 123/53
[2023-03-10] MEDS: CEFAZOLIN 2,000 MG in DEXT 5% WATER 100 ML IV SCH ×3 (02:00→17:57)
[2023-03-10 04:00] VITALS: BP 122/69
[2023-03-10] MEDS: BLOOD SUGAR DIAGNOSTIC STRIP TEST SCH ×4 (07:07→21:00)
[2023-03-10] MEDS ORDERED: INSULIN LISPRO 100 UNITS/ML SUBCUT SCH (07:20)
[2023-03-10] MEDS: INSULIN LISPRO 100 UNITS/ML SUBCUT SCH ×5 (07:50→17:31)
[2023-03-10 08:00] VITALS: BP 119/76
[2023-03-10] MEDS: BACITRACIN 15GM TUBE TOP SCH ×2 (09:00→21:00)
[2023-03-10] MEDS: DICLOFENAC SODIUM 75MG DR (EC) TABLET PO SCH (09:34)
[2023-03-10] MEDS: FAMOTIDINE 20MG TABLET PO SCH ×2 (09:34→21:00)
[2023-03-10] MEDS: LISINOPRIL 2.5MG TABLET PO SCH (09:35)
[2023-03-10 11:51] LABS: HEMATOCRIT 26.8 % (42.0-52.0); HEMOGLOBIN 8.6 g/dL (14.0-18.0); MEAN CORPUSCULAR HEMOGLOBIN 24.5 pg (28.0-32.0); MEAN CORPUSCULAR VOLUME 76.2 fL (80.0-94.0); PLATELET 266 x1000/uL (130-400); RED BLOOD CELL COUNT 3.52 mill/uL (4.7-6.1)
[2023-03-10 11:53] LABS: CHLORIDE 104 mEq/L (98-107)
[2023-03-10 12:00] VITALS: BP 117/65
[2023-03-10 16:00] VITALS: BP 109/52
[2023-03-10] MEDS: ACETAMINOPHEN 325MG TABLET PO PRN (23:43)
[2023-03-10] MEDS: LIDOCAINE 5% PATCH TOP PRN (23:43)
[2023-03-11] VITALS: BP 115/65
[2023-03-11] MEDS: CEFAZOLIN 2,000 MG in DEXT 5% WATER 100 ML IV SCH ×3 (01:06→17:58)
[2023-03-11 04:00] VITALS: BP 108/72
[2023-03-11] MEDS: DICLOFENAC SODIUM 75MG DR (EC) TABLET PO SCH ×3 (05:49→21:58)
[2023-03-11] MEDS: ENOXAPARIN 40MG/0.4ML SYR SUBCUT SCH ×2 (05:49→21:56)
[2023-03-11] MEDS: INSULIN GLARGINE 100 UNITS/ML SUBCUT SCH ×2 (05:52→21:57)
[2023-03-11] MEDS: INSULIN LISPRO 100 UNITS/ML SUBCUT SCH ×8 (05:53→22:08)
[2023-03-11] MEDS: BLOOD SUGAR DIAGNOSTIC STRIP TEST SCH ×4 (06:36→21:00)
[2023-03-11 08:00] VITALS: BP 109/64
[2023-03-11] MEDS: FAMOTIDINE 20MG TABLET PO SCH ×2 (08:35→21:58)
[2023-03-11] MEDS: LISINOPRIL 2.5MG TABLET PO SCH (08:38)
[2023-03-11] MEDS: BACITRACIN 15GM TUBE TOP SCH (09:00)
[2023-03-11 12:00] VITALS: BP 114/62
[2023-03-11 13:37] LABS: HEMATOCRIT 25.3 % (42.0-52.0); HEMOGLOBIN 8.1 g/dL (14.0-18.0); MEAN CORPUSCULAR HEMOGLOBIN 24.6 pg (28.0-32.0); PLATELET 290 x1000/uL (130-400); RED BLOOD CELL COUNT 3.29 mill/uL (4.7-6.1); RED CELL DISTRIBUTION WIDTH 18.5 % (11.6-14.6)
[2023-03-11 13:54] LABS: CHLORIDE 104 mEq/L (98-107)
[2023-03-11 16:00] VITALS: BP 100/52
[2023-03-11] MEDS: LIDOCAINE 5% PATCH TOP PRN (16:40)
[2023-03-11] MEDS: ACETAMINOPHEN 325MG TABLET PO PRN (16:40)
[2023-03-11 20:00] VITALS: BP 100/51
[2023-03-12] MEDS: BACITRACIN 15GM TUBE TOP SCH ×3 (00:21→22:06)
[2023-03-12] MEDS: ACETAMINOPHEN 325MG TABLET PO PRN (00:27)
[2023-03-12] MEDS: LIDOCAINE 5% PATCH TOP PRN (00:28)
[2023-03-12] MEDS: CEFAZOLIN 2,000 MG in DEXT 5% WATER 100 ML IV SCH ×3 (02:27→18:03)
[2023-03-12 06:02] LABS: CHLORIDE 103 mEq/L (98-107)
[2023-03-12 06:09] LABS: HEMATOCRIT. 26.9 % (42.0-52.0); HEMOGLOBIN. 8.7 g/dL (14.0-18.0); MEAN CORPUSCULAR HEMOGLOBIN 24.8 pg (28.0-32.0); MEAN CORPUSCULAR VOLUME 76.5 fL (80.0-94.0); MEAN PLATELET VOLUME 7.7 fl (7.4-10.4); PLATELET 300 x1000/uL (130-400); RED BLOOD CELL COUNT 3.52 mill/uL (4.7-6.1); RED CELL DISTRIBUTION WIDTH 18.7 % (11.6-14.6)
[2023-03-12 06:12] LABS: PHOSPHORUS 2.7 mg/dL (2.5-4.9)
[2023-03-12] MEDS: INSULIN LISPRO 100 UNITS/ML SUBCUT SCH ×7 (07:20→22:13)
[2023-03-12] MEDS: BLOOD SUGAR DIAGNOSTIC STRIP TEST SCH ×4 (07:49→21:00)
[2023-03-12 08:00] VITALS: BP 113/65
[2023-03-12] MEDS: FAMOTIDINE 20MG TABLET PO SCH ×2 (08:28→22:05)
[2023-03-12] MEDS: LISINOPRIL 2.5MG TABLET PO SCH (08:28)
[2023-03-12] MEDS: DICLOFENAC SODIUM 75MG DR (EC) TABLET PO SCH ×2 (08:28→22:05)
[2023-03-12 12:00] VITALS: BP 109/65
[2023-03-12 16:00] VITALS: BP 111/68
[2023-03-12 18:50] LABS: PLATELET ESTIMATE NORMAL
[2023-03-12 20:00] VITALS: BP 115/51
[2023-03-12] MEDS: INSULIN GLARGINE 100 UNITS/ML SUBCUT SCH (22:00)
[2023-03-12] MEDS: ENOXAPARIN 40MG/0.4ML SYR SUBCUT SCH (22:05)
[2023-03-13] VITALS: BP 110/56
[2023-03-13] MEDS: CEFAZOLIN 2,000 MG in DEXT 5% WATER 100 ML IV SCH ×3 (02:00→18:09)
[2023-03-13 04:00] VITALS: BP 111/65
[2023-03-13 06:02] LABS: HEMATOCRIT 26.4 % (42.0-52.0); HEMOGLOBIN 8.6 g/dL (14.0-18.0); MEAN CORPUSCULAR HEMOGLOBIN 25.1 pg (28.0-32.0); MEAN CORPUSCULAR VOLUME 77.2 fL (80.0-94.0); PLATELET 324 x1000/uL (130-400); RED BLOOD CELL COUNT 3.42 mill/uL (4.7-6.1); RED CELL DISTRIBUTION WIDTH 19.6 % (11.6-14.6)
[2023-03-13] MEDS: BLOOD SUGAR DIAGNOSTIC STRIP TEST SCH ×4 (06:49→20:14)
[2023-03-13 06:51] LABS: CHLORIDE 105 mEq/L (98-107)
[2023-03-13] MEDS: INSULIN LISPRO 100 UNITS/ML SUBCUT SCH ×7 (07:06→20:13)
[2023-03-13] MEDS: DICLOFENAC SODIUM 75MG DR (EC) TABLET PO SCH ×2 (07:59→20:06)
[2023-03-13 08:00] VITALS: BP 113/77
[2023-03-13] MEDS: LISINOPRIL 2.5MG TABLET PO SCH (08:00)
[2023-03-13] MEDS: FAMOTIDINE 20MG TABLET PO SCH ×2 (08:00→20:06)
[2023-03-13] MEDS: BACITRACIN 15GM TUBE TOP SCH ×2 (08:01→20:13)
[2023-03-13 12:00] VITALS: BP 101/61
[2023-03-13 16:00] VITALS: BP 111/67
[2023-03-13 20:00] VITALS: BP 98/41
[2023-03-13] MEDS: ENOXAPARIN 40MG/0.4ML SYR SUBCUT SCH (20:06)
[2023-03-13] MEDS: INSULIN GLARGINE 100 UNITS/ML SUBCUT SCH (20:12)
[2023-03-14] VITALS: BP 123/71
[2023-03-14 04:00] VITALS: BP 108/62
[2023-03-14] MEDS: INSULIN LISPRO 100 UNITS/ML SUBCUT SCH ×4 (06:13→21:38)
[2023-03-14] MEDS: BLOOD SUGAR DIAGNOSTIC STRIP TEST SCH ×4 (07:20→20:57)
[2023-03-14 07:37] LABS: HEMATOCRIT 28.2 % (42.0-52.0); MEAN CORPUSCULAR HEMOGLOBIN 24.8 pg (28.0-32.0); MEAN CORPUSCULAR VOLUME 77.7 fL (80.0-94.0); PLATELET 350 x1000/uL (130-400); RED BLOOD CELL COUNT 3.63 mill/uL (4.7-6.1); RED CELL DISTRIBUTION WIDTH 19.8 % (11.6-14.6)
[2023-03-14 08:00] VITALS: BP 111/75
[2023-03-14] MEDS: DICLOFENAC SODIUM 75MG DR (EC) TABLET PO SCH ×2 (08:59→20:39)
[2023-03-14] MEDS: LISINOPRIL 2.5MG TABLET PO SCH (08:59)
[2023-03-14] MEDS: BACITRACIN 15GM TUBE TOP SCH ×2 (08:59→20:44)
[2023-03-14] MEDS: FAMOTIDINE 20MG TABLET PO SCH ×2 (08:59→20:40)
[2023-03-14 09:15] LABS: CHLORIDE 102 mEq/L (98-107)
[2023-03-14] MEDS: CEFAZOLIN 2,000 MG in DEXT 5% WATER 100 ML IV SCH ×2 (10:00→18:04)
[2023-03-14 12:00] VITALS: BP 100/67
[2023-03-14 16:00] VITALS: BP 131/83
[2023-03-14 20:00] VITALS: BP 100/65
[2023-03-14] MEDS: ACETAMINOPHEN 325MG TABLET PO PRN (20:40)
[2023-03-14] MEDS: ENOXAPARIN 40MG/0.4ML SYR SUBCUT SCH (20:44)
[2023-03-14] MEDS: LIDOCAINE 5% PATCH TOP PRN (21:41)
[2023-03-14] MEDS: INSULIN GLARGINE 100 UNITS/ML SUBCUT SCH (21:46)
[2023-03-15] VITALS: BP 95/55
[2023-03-15] MEDS: CEFAZOLIN 2,000 MG in DEXT 5% WATER 100 ML IV SCH ×3 (01:29→18:16)
[2023-03-15 04:00] VITALS: BP 115/79
[2023-03-15] MEDS: INSULIN LISPRO 100 UNITS/ML SUBCUT SCH ×7 (07:00→22:18)
[2023-03-15 07:04] LABS: HEMATOCRIT 28.4 % (42.0-52.0); HEMOGLOBIN 9.2 g/dL (14.0-18.0); MEAN CORPUSCULAR HEMOGLOBIN 25.2 pg (28.0-32.0); MEAN CORPUSCULAR VOLUME 78.2 fL (80.0-94.0); PLATELET 347 x1000/uL (130-400); RED BLOOD CELL COUNT 3.63 mill/uL (4.7-6.1); RED CELL DISTRIBUTION WIDTH 20.3 % (11.6-14.6)
[2023-03-15 07:39] LABS: CHLORIDE 105 mEq/L (98-107)
[2023-03-15 08:00] VITALS: BP 107/76
[2023-03-15] MEDS: BLOOD SUGAR DIAGNOSTIC STRIP TEST SCH ×4 (08:20→21:53)
[2023-03-15] MEDS: FAMOTIDINE 20MG TABLET PO SCH ×2 (08:43→21:52)
[2023-03-15] MEDS: DICLOFENAC SODIUM 75MG DR (EC) TABLET PO SCH ×2 (08:43→22:16)
[2023-03-15] MEDS: LISINOPRIL 2.5MG TABLET PO SCH (08:48)
[2023-03-15] MEDS: BACITRACIN 15GM TUBE TOP SCH ×2 (09:00→21:53)
[2023-03-15 12:00] VITALS: BP 107/69
[2023-03-15 16:00] VITALS: BP 101/68
[2023-03-15 20:00] VITALS: BP 100/72
[2023-03-15] MEDS: ENOXAPARIN 40MG/0.4ML SYR SUBCUT SCH (21:53)
[2023-03-15] MEDS: INSULIN GLARGINE 100 UNITS/ML SUBCUT SCH (22:17)
[2023-03-16] VITALS: BP 101/64
[2023-03-16] MEDS: CEFAZOLIN 2,000 MG in DEXT 5% WATER 100 ML IV SCH ×3 (01:22→17:32)
[2023-03-16 04:00] VITALS: BP 103/64
[2023-03-16] MEDS: LIDOCAINE 5% PATCH TOP PRN (04:22)
[2023-03-16 06:36] LABS: CHLORIDE 104 mEq/L (98-107)
[2023-03-16 06:47] LABS: HEMATOCRIT 28.8 % (42.0-52.0); MEAN CORPUSCULAR HEMOGLOBIN 24.5 pg (28.0-32.0); MEAN CORPUSCULAR VOLUME 78.2 fL (80.0-94.0); PLATELET 389 x1000/uL (130-400); RED BLOOD CELL COUNT 3.68 mill/uL (4.7-6.1); RED CELL DISTRIBUTION WIDTH 20.5 % (11.6-14.6)
[2023-03-16] MEDS: BLOOD SUGAR DIAGNOSTIC STRIP TEST SCH ×4 (06:57→21:00)
[2023-03-16] MEDS: INSULIN LISPRO 100 UNITS/ML SUBCUT SCH ×7 (07:52→21:56)
[2023-03-16 08:00] VITALS: BP 104/73
[2023-03-16] MEDS: LISINOPRIL 2.5MG TABLET PO SCH (09:00)
[2023-03-16] MEDS: FAMOTIDINE 20MG TABLET PO SCH ×2 (09:26→21:48)
[2023-03-16] MEDS: DICLOFENAC SODIUM 75MG DR (EC) TABLET PO SCH ×2 (09:26→21:48)
[2023-03-16 12:00] VITALS: BP 107/93
[2023-03-16] MEDS: BACITRACIN 15GM TUBE TOP SCH ×2 (13:30→21:00)
[2023-03-16 16:00] VITALS: BP 116/75
[2023-03-16 20:00] VITALS: BP 105/76
[2023-03-16] MEDS: ENOXAPARIN 40MG/0.4ML SYR SUBCUT SCH (21:48)
[2023-03-16] MEDS: INSULIN GLARGINE 100 UNITS/ML SUBCUT SCH (21:57)
[2023-03-17] MEDS: CEFAZOLIN 2,000 MG in DEXT 5% WATER 100 ML IV SCH ×3 (02:00→18:21)
[2023-03-17 04:00] VITALS: BP 115/81
[2023-03-17] MEDS: INSULIN LISPRO 100 UNITS/ML SUBCUT SCH ×6 (06:15→21:09)
[2023-03-17] MEDS: BLOOD SUGAR DIAGNOSTIC STRIP TEST SCH ×4 (06:15→21:04)
[2023-03-17 08:00] VITALS: BP 106/72
[2023-03-17] MEDS: BACITRACIN 15GM TUBE TOP SCH (09:00)
[2023-03-17] MEDS: LISINOPRIL 2.5MG TABLET PO SCH (09:00)
[2023-03-17] MEDS: FAMOTIDINE 20MG TABLET PO SCH ×2 (09:53→21:03)
[2023-03-17] MEDS: DICLOFENAC SODIUM 75MG DR (EC) TABLET PO SCH ×2 (09:53→21:03)
[2023-03-17 12:00] VITALS: BP 106/90
[2023-03-17] MEDS: ACETAMINOPHEN 325MG TABLET PO PRN (14:58)
[2023-03-17 16:00] VITALS: BP 102/70
[2023-03-17] MEDS: ENOXAPARIN 40MG/0.4ML SYR SUBCUT SCH (21:05)
[2023-03-17] MEDS: LIDOCAINE 5% PATCH TOP PRN (21:07)
[2023-03-17] MEDS: INSULIN GLARGINE 100 UNITS/ML SUBCUT SCH (21:10)
[2023-03-18] VITALS: BP 104/65
[2023-03-18] MEDS: CEFAZOLIN 2,000 MG in DEXT 5% WATER 100 ML IV SCH ×3 (01:40→18:42)
[2023-03-18 04:00] VITALS: BP 105/68
[2023-03-18] MEDS: BLOOD SUGAR DIAGNOSTIC STRIP TEST SCH ×4 (06:13→21:00)
[2023-03-18] MEDS: INSULIN LISPRO 100 UNITS/ML SUBCUT SCH ×6 (06:13→18:50)
[2023-03-18 08:00] VITALS: BP 107/73
[2023-03-18] MEDS: LISINOPRIL 2.5MG TABLET PO SCH (08:48)
[2023-03-18] MEDS: FAMOTIDINE 20MG TABLET PO SCH ×2 (08:48→22:03)
[2023-03-18] MEDS: DICLOFENAC SODIUM 75MG DR (EC) TABLET PO SCH ×2 (08:48→22:03)
[2023-03-18] MEDS: BACITRACIN 15GM TUBE TOP SCH ×2 (09:00→21:00)
[2023-03-18 12:00] VITALS: BP 104/66
[2023-03-18 16:00] VITALS: BP 106/20
[2023-03-18] MEDS: ACETAMINOPHEN 325MG TABLET PO PRN (18:43)
[2023-03-18 20:00] VITALS: BP 111/73
[2023-03-18] MEDS: ENOXAPARIN 40MG/0.4ML SYR SUBCUT SCH (22:02)
[2023-03-19] VITALS: BP 111/63
[2023-03-19] MEDS: INSULIN LISPRO 100 UNITS/ML SUBCUT SCH ×8 (00:07→21:17)
[2023-03-19] MEDS: INSULIN GLARGINE 100 UNITS/ML SUBCUT SCH ×2 (00:08→21:18)
[2023-03-19] MEDS: LIDOCAINE 5% PATCH TOP PRN (01:13)
[2023-03-19] MEDS: CEFAZOLIN 2,000 MG in DEXT 5% WATER 100 ML IV SCH ×3 (01:50→18:00)
[2023-03-19 04:00] VITALS: BP 123/76
[2023-03-19] MEDS: ACETAMINOPHEN 325MG TABLET PO PRN ×2 (04:52→12:48)
[2023-03-19 06:00] LABS: HEMATOCRIT 28.7 % (42.0-52.0); HEMOGLOBIN 9.4 g/dL (14.0-18.0); MEAN CORPUSCULAR HEMOGLOBIN 25.9 pg (28.0-32.0); MEAN CORPUSCULAR VOLUME 78.8 fL (80.0-94.0); PLATELET 371 x1000/uL (130-400); RED BLOOD CELL COUNT 3.64 mill/uL (4.7-6.1); RED CELL DISTRIBUTION WIDTH 22.5 % (11.6-14.6)
[2023-03-19 06:10] LABS: CHLORIDE 101 mEq/L (98-107)
[2023-03-19] MEDS: BLOOD SUGAR DIAGNOSTIC STRIP TEST SCH ×4 (06:39→20:43)
[2023-03-19 08:00] VITALS: BP 107/74
[2023-03-19] MEDS: BACITRACIN 15GM TUBE TOP SCH ×2 (09:00→21:00)
[2023-03-19] MEDS: LISINOPRIL 2.5MG TABLET PO SCH (09:00)
[2023-03-19] MEDS: FAMOTIDINE 20MG TABLET PO SCH ×2 (09:28→21:09)
[2023-03-19] MEDS: DICLOFENAC SODIUM 75MG DR (EC) TABLET PO SCH ×2 (09:28→21:09)
[2023-03-19 12:00] VITALS: BP 110/73
[2023-03-19 16:00] VITALS: BP 107/80
[2023-03-19 20:00] VITALS: BP 120/72
[2023-03-19] MEDS: ENOXAPARIN 40MG/0.4ML SYR SUBCUT SCH (21:09)
[2023-03-20] VITALS: BP 123/73
[2023-03-20] MEDS: CEFAZOLIN 2,000 MG in DEXT 5% WATER 100 ML IV SCH ×3 (01:29→21:24)
[2023-03-20 04:00] VITALS: BP 103/60
[2023-03-20] MEDS: BLOOD SUGAR DIAGNOSTIC STRIP TEST SCH ×4 (06:44→21:00)
[2023-03-20] MEDS: INSULIN LISPRO 100 UNITS/ML SUBCUT SCH ×7 (07:50→21:29)
[2023-03-20 08:00] VITALS: BP 108/73
[2023-03-20] MEDS: DICLOFENAC SODIUM 75MG DR (EC) TABLET PO SCH ×2 (08:57→21:24)
[2023-03-20] MEDS: FAMOTIDINE 20MG TABLET PO SCH ×2 (08:58→21:24)
[2023-03-20] MEDS: LISINOPRIL 2.5MG TABLET PO SCH (08:59)
[2023-03-20] MEDS: BACITRACIN 15GM TUBE TOP SCH ×2 (09:00→21:24)
[2023-03-20 12:00] VITALS: BP 105/68
[2023-03-20 16:00] VITALS: BP 110/75
[2023-03-20 20:00] VITALS: BP 116/65
[2023-03-20] MEDS: ENOXAPARIN 40MG/0.4ML SYR SUBCUT SCH (21:24)
[2023-03-20] MEDS: INSULIN GLARGINE 100 UNITS/ML SUBCUT SCH (21:30)
[2023-03-21] VITALS: BP 118/72
[2023-03-21] MEDS: CEFAZOLIN 2,000 MG in DEXT 5% WATER 100 ML IV SCH ×2 (02:00→17:26)
[2023-03-21 04:00] VITALS: BP 122/76
[2023-03-21] MEDS: BLOOD SUGAR DIAGNOSTIC STRIP TEST SCH ×4 (06:48→20:56)
[2023-03-21 08:00] VITALS: BP 106/76
[2023-03-21] MEDS: DICLOFENAC SODIUM 75MG DR (EC) TABLET PO SCH ×2 (08:59→21:29)
[2023-03-21] MEDS: LISINOPRIL 2.5MG TABLET PO SCH (09:00)
[2023-03-21] MEDS: FAMOTIDINE 20MG TABLET PO SCH ×2 (09:00→21:29)
[2023-03-21] MEDS: BACITRACIN 15GM TUBE TOP SCH ×2 (09:00→21:00)
[2023-03-21] MEDS: INSULIN LISPRO 100 UNITS/ML SUBCUT SCH ×4 (09:16→21:34)
[2023-03-21] MEDS: ACETAMINOPHEN 325MG TABLET PO PRN (11:16)
[2023-03-21 12:00] VITALS: BP 103/70
[2023-03-21 16:00] VITALS: BP 105/69
[2023-03-21] MEDS ORDERED: INSULIN LISPRO 100 UNITS/ML SUBCUT SCH (17:20)
[2023-03-21 20:00] VITALS: BP 105/63
[2023-03-21] MEDS: ENOXAPARIN 40MG/0.4ML SYR SUBCUT SCH (21:29)
[2023-03-21] MEDS: MELATONIN 3MG TABLET PO PRN (21:45)
[2023-03-21] MEDS ORDERED: INSULIN GLARGINE 100 UNITS/ML SUBCUT SCH (22:00)
[2023-03-21] MEDS: LIDOCAINE 5% PATCH TOP PRN (23:07)
[2023-03-22] MEDS: CEFAZOLIN 2,000 MG in DEXT 5% WATER 100 ML IV SCH ×3 (02:00→17:52)
[2023-03-22 05:44] LABS: HEMATOCRIT 29.9 % (42.0-52.0); HEMOGLOBIN 9.3 g/dL (14.0-18.0); MEAN CORPUSCULAR HEMOGLOBIN 25.2 pg (28.0-32.0); MEAN CORPUSCULAR VOLUME 80.9 fL (80.0-94.0); PLATELET 337 x1000/uL (130-400); RED CELL DISTRIBUTION WIDTH 22.2 % (11.6-14.6)
[2023-03-22 06:26] LABS: CHLORIDE 106 mEq/L (98-107)
[2023-03-22 06:31] LABS: PHOSPHORUS 3.1 mg/dL (2.5-4.9)
[2023-03-22] MEDS: BLOOD SUGAR DIAGNOSTIC STRIP TEST SCH ×4 (07:47→21:00)
[2023-03-22] MEDS: INSULIN LISPRO 100 UNITS/ML SUBCUT SCH ×6 (07:58→21:33)
[2023-03-22 08:00] VITALS: BP 109/71
[2023-03-22] MEDS: LISINOPRIL 2.5MG TABLET PO SCH (09:00)
[2023-03-22] MEDS: BACITRACIN 15GM TUBE TOP SCH ×2 (09:00→21:00)
[2023-03-22] MEDS: FAMOTIDINE 20MG TABLET PO SCH ×2 (10:00→21:28)
[2023-03-22] MEDS: DICLOFENAC SODIUM 75MG DR (EC) TABLET PO SCH ×2 (10:00→21:28)
[2023-03-22 12:00] VITALS: BP 106/72
[2023-03-22 16:00] VITALS: BP 106/69
[2023-03-22 20:00] VITALS: BP 111/76
[2023-03-22] MEDS: ENOXAPARIN 40MG/0.4ML SYR SUBCUT SCH (21:28)
[2023-03-22] MEDS: MELATONIN 3MG TABLET PO PRN (21:28)
[2023-03-22] MEDS: INSULIN GLARGINE 100 UNITS/ML SUBCUT SCH (21:34)
[2023-03-22] MEDS: LIDOCAINE 5% PATCH TOP PRN (21:47)
[2023-03-23] MEDS: CEFAZOLIN 2,000 MG in DEXT 5% WATER 100 ML IV SCH ×3 (02:00→17:54)
[2023-03-23 06:00] LABS: HEMATOCRIT 30.4 % (42.0-52.0); MEAN CORPUSCULAR HEMOGLOBIN 26.2 pg (28.0-32.0); MEAN CORPUSCULAR VOLUME 79.7 fL (80.0-94.0); PLATELET 318 x1000/uL (130-400); RED BLOOD CELL COUNT 3.81 mill/uL (4.7-6.1); RED CELL DISTRIBUTION WIDTH 22.6 % (11.6-14.6)
[2023-03-23 06:43] LABS: CHLORIDE 106 mEq/L (98-107)
[2023-03-23 06:48] LABS: PHOSPHORUS 4.2 mg/dL (2.5-4.9)
[2023-03-23] MEDS: BLOOD SUGAR DIAGNOSTIC STRIP TEST SCH ×3 (07:34→21:00)
[2023-03-23] MEDS: INSULIN LISPRO 100 UNITS/ML SUBCUT SCH ×6 (07:58→17:54)
[2023-03-23 08:00] VITALS: BP 105/70
[2023-03-23] MEDS: DICLOFENAC SODIUM 75MG DR (EC) TABLET PO SCH ×2 (08:28→20:33)
[2023-03-23] MEDS: FAMOTIDINE 20MG TABLET PO SCH ×2 (08:28→20:33)
[2023-03-23] MEDS: LISINOPRIL 2.5MG TABLET PO SCH (08:29)
[2023-03-23] MEDS: BACITRACIN 15GM TUBE TOP SCH ×2 (08:29→20:33)
[2023-03-23 12:00] VITALS: BP 106/68
[2023-03-23 16:00] VITALS: BP 105/76
[2023-03-23] MEDS: MELATONIN 3MG TABLET PO PRN (21:04)
[2023-03-23] MEDS: ENOXAPARIN 40MG/0.4ML SYR SUBCUT SCH (21:30)
[2023-03-23] MEDS: INSULIN GLARGINE 100 UNITS/ML SUBCUT SCH (23:59)
[2023-03-24] VITALS: BP 105/72
[2023-03-24] MEDS: CEFAZOLIN 2,000 MG in DEXT 5% WATER 100 ML IV SCH ×3 (02:51→17:38)
[2023-03-24 06:56] LABS: HEMATOCRIT 29.8 % (42.0-52.0); HEMOGLOBIN 9.7 g/dL (14.0-18.0); MEAN CORPUSCULAR VOLUME 79.7 fL (80.0-94.0); PLATELET 306 x1000/uL (130-400); RED BLOOD CELL COUNT 3.74 mill/uL (4.7-6.1); RED CELL DISTRIBUTION WIDTH 22.4 % (11.6-14.6)
[2023-03-24] MEDS: INSULIN LISPRO 100 UNITS/ML SUBCUT SCH ×8 (07:20→22:54)
[2023-03-24] MEDS: BLOOD SUGAR DIAGNOSTIC STRIP TEST SCH ×4 (07:20→21:46)
[2023-03-24 07:25] LABS: CHLORIDE 105 mEq/L (98-107)
[2023-03-24 07:33] LABS: PHOSPHORUS 3.1 mg/dL (2.5-4.9)
[2023-03-24 08:00] VITALS: BP 103/74
[2023-03-24] MEDS: FAMOTIDINE 20MG TABLET PO SCH ×2 (08:40→21:48)
[2023-03-24] MEDS: DICLOFENAC SODIUM 75MG DR (EC) TABLET PO SCH ×2 (08:40→21:48)
[2023-03-24] MEDS: LISINOPRIL 2.5MG TABLET PO SCH (08:40)
[2023-03-24] MEDS: BACITRACIN 15GM TUBE TOP SCH ×2 (09:00→21:48)
[2023-03-24 12:00] VITALS: BP 101/68
[2023-03-24 16:00] VITALS: BP 105/72
[2023-03-24 20:00] VITALS: BP 105/75
[2023-03-24] MEDS: ENOXAPARIN 40MG/0.4ML SYR SUBCUT SCH (21:48)
[2023-03-24] MEDS: INSULIN GLARGINE 100 UNITS/ML SUBCUT SCH (22:54)
[2023-03-25] MEDS: CEFAZOLIN 2,000 MG in DEXT 5% WATER 100 ML IV SCH ×3 (02:54→17:32)
[2023-03-25 04:00] VITALS: BP 109/74
[2023-03-25] MEDS: BLOOD SUGAR DIAGNOSTIC STRIP TEST SCH ×4 (06:22→21:00)
[2023-03-25] MEDS: INSULIN LISPRO 100 UNITS/ML SUBCUT SCH ×7 (07:20→21:00)
[2023-03-25 08:00] VITALS: BP 105/63
[2023-03-25] MEDS: BACITRACIN 15GM TUBE TOP SCH ×2 (09:00→21:00)
[2023-03-25] MEDS: DICLOFENAC SODIUM 75MG DR (EC) TABLET PO SCH ×2 (09:00→21:00)
[2023-03-25] MEDS: FAMOTIDINE 20MG TABLET PO SCH ×2 (09:00→21:00)
[2023-03-25] MEDS: LISINOPRIL 2.5MG TABLET PO SCH (09:00)
[2023-03-25 10:36] LABS: HEMATOCRIT 30.5 % (42.0-52.0); HEMOGLOBIN 9.9 g/dL (14.0-18.0); MEAN CORPUSCULAR VOLUME 79.9 fL (80.0-94.0); PLATELET 316 x1000/uL (130-400); RED BLOOD CELL COUNT 3.82 mill/uL (4.7-6.1); RED CELL DISTRIBUTION WIDTH 22.7 % (11.6-14.6)
[2023-03-25 10:40] LABS: CHLORIDE 108 mEq/L (98-107)
[2023-03-25 12:00] VITALS: BP 103/68
[2023-03-25 16:00] VITALS: BP 85/60
[2023-03-25 20:00] VITALS: BP 117/75
[2023-03-25] MEDS: ENOXAPARIN 40MG/0.4ML SYR SUBCUT SCH (21:30)
[2023-03-25] MEDS: INSULIN GLARGINE 100 UNITS/ML SUBCUT SCH (22:00)
[2023-03-26] VITALS: BP 102/69
[2023-03-26] MEDS: CEFAZOLIN 2,000 MG in DEXT 5% WATER 100 ML IV SCH ×3 (02:00→17:52)
[2023-03-26 04:00] VITALS: BP 107/71
[2023-03-26] MEDS: LIDOCAINE 5% PATCH TOP PRN (05:14)
[2023-03-26] MEDS: BLOOD SUGAR DIAGNOSTIC STRIP TEST SCH ×4 (07:22→21:00)
[2023-03-26] MEDS: INSULIN LISPRO 100 UNITS/ML SUBCUT SCH ×5 (07:28→21:40)
[2023-03-26 08:00] VITALS: BP 108/71
[2023-03-26] MEDS: BACITRACIN 15GM TUBE TOP SCH ×2 (09:00→21:00)
[2023-03-26] MEDS: DICLOFENAC SODIUM 75MG DR (EC) TABLET PO SCH ×2 (09:03→21:00)
[2023-03-26] MEDS: FAMOTIDINE 20MG TABLET PO SCH ×2 (09:03→21:00)
[2023-03-26 12:00] VITALS: BP 101/65
[2023-03-26 16:00] VITALS: BP 105/65
[2023-03-26 20:00] VITALS: BP 121/77
[2023-03-26] MEDS: ENOXAPARIN 40MG/0.4ML SYR SUBCUT SCH (21:02)
[2023-03-26] MEDS: MELATONIN 3MG TABLET PO PRN (21:33)
[2023-03-26] MEDS: INSULIN GLARGINE 100 UNITS/ML SUBCUT SCH (23:52)
[2023-03-27] VITALS: BP 130/80
[2023-03-27] MEDS: CEFAZOLIN 2,000 MG in DEXT 5% WATER 100 ML IV SCH ×3 (03:18→18:11)
[2023-03-27 04:00] VITALS: BP 98/67
[2023-03-27] MEDS: BLOOD SUGAR DIAGNOSTIC STRIP TEST SCH ×4 (06:00→21:00)
[2023-03-27 07:41] LABS: HEMATOCRIT 30.1 % (42.0-52.0); HEMOGLOBIN 10.1 g/dL (14.0-18.0); MEAN CORPUSCULAR HEMOGLOBIN 26.6 pg (28.0-32.0); MEAN CORPUSCULAR VOLUME 79.6 fL (80.0-94.0); PLATELET 269 x1000/uL (130-400); RED BLOOD CELL COUNT 3.78 mill/uL (4.7-6.1); RED CELL DISTRIBUTION WIDTH 21.9 % (11.6-14.6)
[2023-03-27 08:00] VITALS: BP 105/74
[2023-03-27 08:40] LABS: CHLORIDE 106 mEq/L (98-107)
[2023-03-27 09:17] LABS: PHOSPHORUS 3.7 mg/dL (2.5-4.9)
[2023-03-27] MEDS: FAMOTIDINE 20MG TABLET PO SCH (09:27)
[2023-03-27] MEDS: INSULIN LISPRO 100 UNITS/ML SUBCUT SCH ×4 (09:27→21:00)
[2023-03-27] MEDS: DICLOFENAC SODIUM 75MG DR (EC) TABLET PO SCH ×2 (09:27→21:11)
[2023-03-27 12:00] VITALS: BP 99/73
[2023-03-27 16:00] VITALS: BP 100/73
[2023-03-27 20:00] VITALS: BP 131/77
[2023-03-27] MEDS: ENOXAPARIN 40MG/0.4ML SYR SUBCUT SCH (21:13)
[2023-03-27] MEDS: INSULIN GLARGINE 100 UNITS/ML SUBCUT SCH (22:32)
[2023-03-27] MEDS: MELATONIN 3MG TABLET PO PRN (22:47)
[2023-03-28] VITALS (7 sets, daily range): BP systolic 98–110; BP diastolic 65–91
[2023-03-28] MEDS: LIDOCAINE 5% PATCH TOP PRN (01:17)
[2023-03-28] MEDS: CEFAZOLIN 2,000 MG in DEXT 5% WATER 100 ML IV SCH ×3 (01:24→18:00)
[2023-03-28] MEDS: BLOOD SUGAR DIAGNOSTIC STRIP TEST SCH ×4 (06:55→21:00)
[2023-03-28 07:46] LABS: HEMATOCRIT 31.1 % (42.0-52.0); HEMOGLOBIN 10.1 g/dL (14.0-18.0); MEAN CORPUSCULAR HEMOGLOBIN 26.1 pg (28.0-32.0); MEAN CORPUSCULAR VOLUME 80.4 fL (80.0-94.0); PLATELET 274 x1000/uL (130-400); RED BLOOD CELL COUNT 3.87 mill/uL (4.7-6.1); RED CELL DISTRIBUTION WIDTH 22.5 % (11.6-14.6)
[2023-03-28 08:00] LABS: CHLORIDE 108 mEq/L (98-107)
[2023-03-28 08:09] LABS: PHOSPHORUS 3.6 mg/dL (2.5-4.9)
[2023-03-28] MEDS: DICLOFENAC SODIUM 75MG DR (EC) TABLET PO SCH ×2 (08:52→22:35)
[2023-03-28] MEDS: INSULIN LISPRO 100 UNITS/ML SUBCUT SCH ×4 (08:57→21:00)
[2023-03-28] MEDS ORDERED: GADOTERATE MEGLUMINE 5 MMOL/10 ML VIAL IV ONE (11:04)
[2023-03-28] MEDS ORDERED: MORPHINE SULFATE 2 MG/ML CPJ (NOT FOR IM USE) IV NR (14:15)
[2023-03-28] MEDS: INSULIN GLARGINE 100 UNITS/ML SUBCUT SCH (22:00)
[2023-03-28] MEDS: ENOXAPARIN 40MG/0.4ML SYR SUBCUT SCH (22:34)
== END 2023-03-28 22:50 | disposition short-term general hospital (02) | DRG 710 ==
LOC: ER 13:33 → 6EST 15:38 → ENRESERV 21:16 → 6EST 23:22 → 5EST 02-23 13:33 → 3WST 02-25 02:05 → 6EST 03-08 02:25
PROVIDERS: ADMIT Internal Medicine; ATTEND Internal Medicine
PROC: 0J9J0ZZ Drainage of Right Hand Subcutaneous Tissue and Fascia, Open Approach (ICD-10-PCS; principal; 2023-02-24)
PROC: 02HV33Z Insertion of Infusion Device into Superior Vena Cava, Percutaneous Approach (ICD-10-PCS; 2023-02-28)
PROC: B548ZZA Ultrasonography of Superior Vena Cava, Guidance (ICD-10-PCS; 2023-02-28)
PROC: B5181ZA Fluoroscopy of Superior Vena Cava using Low Osmolar Contrast, Guidance (ICD-10-PCS; 2023-02-28)
PROC: 30233N1 Transfusion of Nonautologous Red Blood Cells into Peripheral Vein, Percutaneous Approach (ICD-10-PCS; 2023-03-02)
DX: A41.01 Sepsis due to Methicillin susceptible Staphylococcus aureus (principal); I33.0 Acute and subacute infective endocarditis; G06.2 Extradural and subdural abscess, unspecified; G92.8 Other toxic encephalopathy; E43 Unspecified severe protein-calorie malnutrition; E11.10 Type 2 diabetes mellitus with ketoacidosis without coma; N17.9 Acute kidney failure, unspecified; E83.39 Other disorders of phosphorus metabolism; I50.20 Unspecified systolic (congestive) heart failure; R65.20 Severe sepsis without septic shock; F11.10 Opioid abuse, uncomplicated; L03.113 Cellulitis of right upper limb; L02.413 Cutaneous abscess of right upper limb; L03.314 Cellulitis of groin; E87.6 Hypokalemia; B95.8 Unspecified staphylococcus as the cause of diseases classified elsewhere; L02.214 Cutaneous abscess of groin; I72.3 Aneurysm of iliac artery; I71.43 Infrarenal abdominal aortic aneurysm, without rupture; N13.6 Pyonephrosis; F14.129 Cocaine abuse with intoxication, unspecified; I07.1 Rheumatic tricuspid insufficiency; N40.1 Benign prostatic hyperplasia with lower urinary tract symptoms; N13.8 Other obstructive and reflux uropathy; I13.0 Hypertensive heart and chronic kidney disease with heart failure and stage 1 through stage 4 chronic kidney disease, or unspecified chronic kidney disease; L02.414 Cutaneous abscess of left upper limb; N18.9 Chronic kidney disease, unspecified; E78.00 Pure hypercholesterolemia, unspecified; F17.210 Nicotine dependence, cigarettes, uncomplicated; I80.8 Phlebitis and thrombophlebitis of other sites; D50.9 Iron deficiency anemia, unspecified; M46.47 Discitis, unspecified, lumbosacral region; M46.27 Osteomyelitis of vertebra, lumbosacral region; E11.69 Type 2 diabetes mellitus with other specified complication; E11.22 Type 2 diabetes mellitus with diabetic chronic kidney disease; D63.1 Anemia in chronic kidney disease; K68.12 Psoas muscle abscess; Z88.0 Allergy status to penicillin; Z79.4 Long term (current) use of insulin; Z59.00 Homelessness unspecified; Z68.20 Body mass index [BMI] 20.0-20.9, adult; Z90.49 Acquired absence of other specified parts of digestive tract; Z86.73 Personal history of transient ischemic attack (TIA), and cerebral infarction without residual deficits
CPT/HCPCS: 36415; 36573; 36600; 71045; 72148; 76770; 80048; 80053; 80061; 80202; 80320; 81003; 82010; 82375; 82550; 82805; 82962; 83036; 83605; 83735; 83880; 84100; 84145; 84439; 84443; 84481; 84484; 85014; 85018; 85025; 85027; 85651; 86705; 86709; 86803; 86850; 86900; 86920; 87070; 87077; 87186; 87340; 87389; 93306; 93312; 93970; 97162; 97164; 97166; 97530; 97535; 99285; A6261; A9577; C1725; C1769; C1893; C9113; J0690; J0878; J1200; J1650; J1815; J1885; J1956; J2250; J2270; J2405; J3010; J3370; J3480; J3490; J7030; J7060; P9016; A4315; G0480

== ENCOUNTER 2023-04-01 22:40 | Inpatient (IN) | payer MEDICAID ==
[~2023-04-01] VITALS: Ht 165.1 cm; Wt 60.8 kg
[2023-04-01 22:15] VITALS: BP 89/54; PULSE 83; RESP 18; TEMP 97.1
[2023-04-01 22:30] VITALS: BP 89/54; PULSE 83; RESP 18; TEMP 97.1
[2023-04-02] VITALS: BP 125/66; PULSE 99; RESP 20; TEMP 98.2
[2023-04-02] MEDS ORDERED: ATOR40TA70 PO (00:26)
[2023-04-02] MEDS ORDERED: HYDROCODONE/ACETAMINOPHEN 10/325MG TABLET PO NR (03:00)
[2023-04-02] MEDS ORDERED: ACETAMINOPHEN 325MG TABLET PO PRN (03:00)
[2023-04-02] MEDS ORDERED: NALOXONE HCL 0.4MG/ML VIAL IV PRN (03:15)
[2023-04-02 04:00] VITALS: BP 100/60; PULSE 90; RESP 20; TEMP 98.4
[2023-04-02] MEDS ORDERED: DEXTROSE 50% WATER 50ML SYRINGE IV PRN (04:30)
[2023-04-02] MEDS ORDERED: CEFAZOLIN 1000MG PREMIX 50 ML IV SCH (06:15)
[2023-04-02] MEDS: MORPHINE SULFATE 4 MG/ML CPJ (NOT FOR IM USE) IV PRN ×3 (06:16→18:16)
[2023-04-02 06:54] LABS: BASOPHILS % 0.4 % (0.0-2.0); EOSINOPHILS % 1.7 % (0.0-5.0); HEMOGLOBIN. 11.3 g/dL (14.0-18.0); LYMPHOCYTES % 23.6 % (20.0-50.0); MEAN CORPUSCULAR HEMOGLOBIN 26.9 pg (28.0-32.0); MEAN CORPUSCULAR VOLUME 80.9 fL (80.0-94.0); MEAN PLATELET VOLUME 8.2 fl (7.4-10.4); MONOCYTES % 11.1 % (2.0-8.0); NEUTROPHILS % 63.2 % (40.0-76.0); PLATELET 221 x1000/uL (130-400); RED CELL DISTRIBUTION WIDTH 20.9 % (11.6-14.6)
[2023-04-02] MEDS ORDERED: HYDROCODONE/ACETAMINOPHEN 10/325MG TABLET PO PRN (07:00)
[2023-04-02] MEDS: BLOOD SUGAR DIAGNOSTIC STRIP TEST SCH ×4 (07:10→21:11)
[2023-04-02 07:19] LABS: CHLORIDE 99 mEq/L (98-107)
[2023-04-02] MEDS: INSULIN LISPRO 100 UNITS/ML SUBCUT SCH ×4 (07:40→21:10)
[2023-04-02 08:00] VITALS: BP 100/54; PULSE 74; RESP 18; TEMP 97.5
[2023-04-02] MEDS ORDERED: METH10OR PO (08:15)
[2023-04-02] MEDS: ENOXAPARIN 40MG/0.4ML SYR SUBCUT SCH (09:38)
[2023-04-02 12:00] VITALS: BP 103/52; PULSE 86; RESP 18; TEMP 97.4
[2023-04-02 16:00] VITALS: BP 99/50; PULSE 93; RESP 20; TEMP 99
[2023-04-02] MEDS: CEFAZOLIN 2000MG in DEXTROSE 5% WATER 100ML IV SCH ×2 (17:39→21:11)
[2023-04-02 20:00] VITALS: BP 98/56; PULSE 88; RESP 20; TEMP 98
[2023-04-02] MEDS: INSULIN GLARGINE 100 UNITS/ML SUBCUT SCH (21:11)
[2023-04-03] VITALS (7 sets, daily range): BP systolic 95–110; BP diastolic 50–68; PULSE 66–92; RESP 16–20; TEMP 97.2–100.9
[2023-04-03] MEDS: MORPHINE SULFATE 4 MG/ML CPJ (NOT FOR IM USE) IV PRN ×2 (00:11→06:19)
[2023-04-03] MEDS: CEFAZOLIN 2000MG in DEXTROSE 5% WATER 100ML IV SCH ×3 (05:25→23:44)
[2023-04-03] MEDS: INSULIN LISPRO 100 UNITS/ML SUBCUT SCH ×4 (06:18→21:29)
[2023-04-03] MEDS: BLOOD SUGAR DIAGNOSTIC STRIP TEST SCH ×4 (06:19→21:02)
[2023-04-03 06:42] LABS: BASOPHILS % 0.3 % (0.0-2.0); HEMATOCRIT. 32.3 % (42.0-52.0); HEMOGLOBIN. 10.2 g/dL (14.0-18.0); LYMPHOCYTES % 22.6 % (20.0-50.0); MEAN CORPUSCULAR HEMOGLOBIN 25.7 pg (28.0-32.0); MEAN CORPUSCULAR VOLUME 80.9 fL (80.0-94.0); MEAN PLATELET VOLUME 7.9 fl (7.4-10.4); MONOCYTES % 13.5 % (2.0-8.0); NEUTROPHILS % 61.6 % (40.0-76.0); PLATELET 223 x1000/uL (130-400); RED BLOOD CELL COUNT 3.99 mill/uL (4.7-6.1); RED CELL DISTRIBUTION WIDTH 20.8 % (11.6-14.6)
[2023-04-03 07:04] LABS: CHLORIDE 102 mEq/L (98-107)
[2023-04-03] MEDS: ENOXAPARIN 40MG/0.4ML SYR SUBCUT SCH (09:32)
[2023-04-03] MEDS: HYDROMORPHONE HCL/PF 2MG/ML CPJ IV PRN ×2 (09:54→21:17)
[2023-04-03] MEDS: HYDROCODONE/ACETAMINOPHEN 10/325MG TABLET PO PRN ×2 (16:37→23:53)
[2023-04-03] MEDS: ACETAMINOPHEN 325MG TABLET PO PRN (21:17)
[2023-04-03] MEDS: INSULIN GLARGINE 100 UNITS/ML SUBCUT SCH (21:30)
[2023-04-04 04:00] VITALS: BP 90/52; PULSE 77; RESP 20; TEMP 99.5
[2023-04-04 05:19] LABS: BASOPHILS % 0.7 % (0.0-2.0); EOSINOPHILS % 3.2 % (0.0-5.0); HEMATOCRIT. 29.8 % (42.0-52.0); HEMOGLOBIN. 9.7 g/dL (14.0-18.0); LYMPHOCYTES % 26.1 % (20.0-50.0); MEAN CORPUSCULAR HEMOGLOBIN 26.2 pg (28.0-32.0); MEAN CORPUSCULAR VOLUME 80.4 fL (80.0-94.0); MEAN PLATELET VOLUME 7.6 fl (7.4-10.4); MONOCYTES % 12.4 % (2.0-8.0); NEUTROPHILS % 57.6 % (40.0-76.0); PLATELET 204 x1000/uL (130-400); RED CELL DISTRIBUTION WIDTH 20.5 % (11.6-14.6)
[2023-04-04 05:33] LABS: CHLORIDE 103 mEq/L (98-107)
[2023-04-04] MEDS: CEFAZOLIN 2000MG in DEXTROSE 5% WATER 100ML IV SCH ×3 (06:02→22:58)
[2023-04-04] MEDS: INSULIN LISPRO 100 UNITS/ML SUBCUT SCH ×4 (06:07→21:27)
[2023-04-04] MEDS: BLOOD SUGAR DIAGNOSTIC STRIP TEST SCH ×4 (06:08→21:04)
[2023-04-04] MEDS ORDERED: SODIUM CHLORIDE 0.9% 500 ML IV ONE (08:00)
[2023-04-04] MEDS: ENOXAPARIN 40MG/0.4ML SYR SUBCUT SCH (08:57)
[2023-04-04] MEDS: HYDROMORPHONE HCL/PF 2MG/ML CPJ IV PRN ×3 (08:57→22:59)
[2023-04-04 12:00] VITALS: BP 80/45; PULSE 85; RESP 20; TEMP 99.3
[2023-04-04] MEDS: HYDROCODONE/ACETAMINOPHEN 10/325MG TABLET PO PRN (14:03)
[2023-04-04] MEDS: SERTRALINE HCL 25MG TABLET PO SCH (14:13)
[2023-04-04] MEDS: MIDODRINE HCL 5MG TABLET PO SCH ×2 (14:14→18:25)
[2023-04-04 18:05] VITALS: BP 94/57; PULSE 88; RESP 20; TEMP 98.8
[2023-04-04 20:00] VITALS: BP 104/61; PULSE 80; RESP 17; TEMP 97.9
[2023-04-04] MEDS: INSULIN GLARGINE 100 UNITS/ML SUBCUT SCH (23:04)
[2023-04-05 04:00] VITALS: BP 133/71; PULSE 99; RESP 20; TEMP 98.8
[2023-04-05] MEDS: HYDROMORPHONE HCL/PF 2MG/ML CPJ IV PRN ×3 (05:21→17:35)
[2023-04-05 05:59] LABS: BASOPHILS % 0.9 % (0.0-2.0); EOSINOPHILS % 3.3 % (0.0-5.0); HEMATOCRIT. 30.3 % (42.0-52.0); HEMOGLOBIN. 9.8 g/dL (14.0-18.0); LYMPHOCYTES % 25.6 % (20.0-50.0); MEAN CORPUSCULAR HEMOGLOBIN 25.9 pg (28.0-32.0); MEAN CORPUSCULAR VOLUME 80.1 fL (80.0-94.0); MEAN PLATELET VOLUME 7.5 fl (7.4-10.4); MONOCYTES % 12.3 % (2.0-8.0); NEUTROPHILS % 57.9 % (40.0-76.0); PLATELET 224 x1000/uL (130-400); RED BLOOD CELL COUNT 3.78 mill/uL (4.7-6.1)
[2023-04-05 06:15] LABS: CHLORIDE 105 mEq/L (98-107)
[2023-04-05] MEDS: CEFAZOLIN 2000MG in DEXTROSE 5% WATER 100ML IV SCH ×3 (06:55→21:07)
[2023-04-05] MEDS: BLOOD SUGAR DIAGNOSTIC STRIP TEST SCH ×4 (07:10→21:07)
[2023-04-05] MEDS: INSULIN LISPRO 100 UNITS/ML SUBCUT SCH ×4 (07:40→21:20)
[2023-04-05 08:00] VITALS: BP 86/55; PULSE 70; RESP 20; TEMP 97.9
[2023-04-05] MEDS: SERTRALINE HCL 25MG TABLET PO SCH (08:44)
[2023-04-05] MEDS: MIDODRINE HCL 5MG TABLET PO SCH ×3 (08:44→17:43)
[2023-04-05] MEDS: ENOXAPARIN 40MG/0.4ML SYR SUBCUT SCH (08:45)
[2023-04-05] MEDS: HYDROCODONE/ACETAMINOPHEN 10/325MG TABLET PO PRN ×3 (08:51→21:26)
[2023-04-05 12:00] VITALS: BP 96/60; PULSE 94; RESP 20; TEMP 98.1
[2023-04-05 16:00] VITALS: BP 102/48; PULSE 73; RESP 20; TEMP 98.3
[2023-04-05 20:00] VITALS: BP 93/50; PULSE 80; RESP 16; TEMP 99.1
[2023-04-05] MEDS: INSULIN GLARGINE 100 UNITS/ML SUBCUT SCH (21:20)
[2023-04-06] VITALS: BP 107/71; PULSE 74; RESP 20; TEMP 97
[2023-04-06] MEDS: HYDROMORPHONE HCL/PF 2MG/ML CPJ IV PRN ×4 (02:54→21:36)
[2023-04-06 04:00] VITALS: BP 96/53; PULSE 91; RESP 20; TEMP 98.2
[2023-04-06] MEDS: CEFAZOLIN 2000MG in DEXTROSE 5% WATER 100ML IV SCH ×3 (06:31→21:23)
[2023-04-06] MEDS: BLOOD SUGAR DIAGNOSTIC STRIP TEST SCH ×4 (06:31→21:23)
[2023-04-06] MEDS: INSULIN LISPRO 100 UNITS/ML SUBCUT SCH ×4 (06:32→21:24)
[2023-04-06] MEDS: HYDROCODONE/ACETAMINOPHEN 10/325MG TABLET PO PRN ×2 (06:32→12:41)
[2023-04-06 08:00] VITALS: BP 112/64; PULSE 70; RESP 20; TEMP 98.1
[2023-04-06] MEDS: SERTRALINE HCL 25MG TABLET PO SCH (09:00)
[2023-04-06] MEDS: ENOXAPARIN 40MG/0.4ML SYR SUBCUT SCH (09:12)
[2023-04-06] MEDS: MIDODRINE HCL 5MG TABLET PO SCH ×3 (09:12→18:34)
[2023-04-06 12:00] VITALS: BP 92/62; PULSE 69; RESP 18; TEMP 99.9
[2023-04-06 16:00] VITALS: BP 101/55; PULSE 74; RESP 16; TEMP 97.9
[2023-04-06 20:00] VITALS: BP 108/70; PULSE 75; RESP 18; TEMP 97.9
[2023-04-06] MEDS: INSULIN GLARGINE 100 UNITS/ML SUBCUT SCH (21:24)
[2023-04-07] VITALS: BP 90/48; PULSE 70; RESP 18; TEMP 97.9
[2023-04-07] MEDS: HYDROCODONE/ACETAMINOPHEN 10/325MG TABLET PO PRN ×4 (02:56→22:32)
[2023-04-07 04:00] VITALS: BP_DIAS 59; PULSE 71; RESP 18; TEMP 98.2
[2023-04-07] MEDS: CEFAZOLIN 2000MG in DEXTROSE 5% WATER 100ML IV SCH (05:24)
[2023-04-07] MEDS: HYDROMORPHONE HCL/PF 2MG/ML CPJ IV PRN ×3 (05:25→18:24)
[2023-04-07] MEDS: BLOOD SUGAR DIAGNOSTIC STRIP TEST SCH ×4 (05:54→21:43)
[2023-04-07] MEDS: INSULIN LISPRO 100 UNITS/ML SUBCUT SCH ×4 (05:54→21:47)
[2023-04-07 08:00] VITALS: BP 109/58; PULSE 82; RESP 18; TEMP 98.1
[2023-04-07] MEDS: SERTRALINE HCL 25MG TABLET PO SCH ×2 (08:34→21:40)
[2023-04-07] MEDS: MIDODRINE HCL 5MG TABLET PO SCH ×3 (08:35→16:34)
[2023-04-07] MEDS: ENOXAPARIN 40MG/0.4ML SYR SUBCUT SCH (08:35)
[2023-04-07 12:00] VITALS: BP 98/62; PULSE 70; RESP 16; TEMP 97
[2023-04-07 12:20] LABS: CHLORIDE 105 mEq/L (98-107)
[2023-04-07] MEDS: CEFAZOLIN 2,000 MG in DEXT 5% WATER 100 ML IV SCH ×2 (13:28→21:42)
[2023-04-07 13:40] LABS: HEMATOCRIT 30.6 % (42.0-52.0); MEAN CORPUSCULAR HEMOGLOBIN 26.1 pg (28.0-32.0); MEAN CORPUSCULAR VOLUME 79.5 fL (80.0-94.0); PLATELET 225 x1000/uL (130-400); RED BLOOD CELL COUNT 3.85 mill/uL (4.7-6.1)
[2023-04-07 16:00] VITALS: BP 98/59; PULSE 70; RESP 20; TEMP 97.5
[2023-04-07 20:00] VITALS: BP 95/46; PULSE 97; RESP 18; TEMP 97
[2023-04-07] MEDS: INSULIN GLARGINE 100 UNITS/ML SUBCUT SCH (21:47)
[2023-04-08] VITALS: BP 99/50; PULSE 87; RESP 18; TEMP 96.8
[2023-04-08] MEDS: HYDROMORPHONE HCL/PF 2MG/ML CPJ IV PRN ×4 (00:53→23:09)
[2023-04-08 04:00] VITALS: BP 103/64; PULSE 71; RESP 18; TEMP 97.8
[2023-04-08] MEDS: HYDROCODONE/ACETAMINOPHEN 10/325MG TABLET PO PRN ×2 (04:48→12:17)
[2023-04-08] MEDS: CEFAZOLIN 2,000 MG in DEXT 5% WATER 100 ML IV SCH ×3 (05:03→21:51)
[2023-04-08] MEDS: BLOOD SUGAR DIAGNOSTIC STRIP TEST SCH ×4 (06:28→21:51)
[2023-04-08] MEDS: INSULIN LISPRO 100 UNITS/ML SUBCUT SCH ×4 (06:39→22:00)
[2023-04-08 08:00] VITALS: BP 101/56; PULSE 68; RESP 20; TEMP 98.8
[2023-04-08] MEDS: MIDODRINE HCL 5MG TABLET PO SCH ×3 (08:52→17:55)
[2023-04-08] MEDS: ENOXAPARIN 40MG/0.4ML SYR SUBCUT SCH (08:52)
[2023-04-08 12:00] VITALS: BP 94/68; PULSE 68; RESP 20; TEMP 98.6
[2023-04-08 16:00] VITALS: BP 99/56; PULSE 75; RESP 20; TEMP 99
[2023-04-08 20:00] VITALS: BP 103/60; PULSE 74; RESP 18; TEMP 99.3
[2023-04-08] MEDS: INSULIN GLARGINE 100 UNITS/ML SUBCUT SCH (22:00)
[2023-04-08] MEDS: SERTRALINE HCL 25MG TABLET PO SCH (22:14)
[2023-04-09] VITALS: BP 112/70; PULSE 77; RESP 20; TEMP 97
[2023-04-09 04:00] VITALS: BP 101/59; PULSE 69; RESP 18; TEMP 97.8
[2023-04-09] MEDS: CEFAZOLIN 2,000 MG in DEXT 5% WATER 100 ML IV SCH ×3 (06:17→21:08)
[2023-04-09] MEDS: BLOOD SUGAR DIAGNOSTIC STRIP TEST SCH ×4 (06:35→21:26)
[2023-04-09] MEDS: HYDROMORPHONE HCL/PF 2MG/ML CPJ IV PRN ×3 (06:38→20:54)
[2023-04-09] MEDS: INSULIN LISPRO 100 UNITS/ML SUBCUT SCH ×4 (06:39→21:23)
[2023-04-09 08:00] VITALS: BP 97/58; PULSE 76; RESP 18; TEMP 98.8
[2023-04-09] MEDS: ENOXAPARIN 40MG/0.4ML SYR SUBCUT SCH (08:02)
[2023-04-09] MEDS: MIDODRINE HCL 5MG TABLET PO SCH ×3 (08:02→16:49)
[2023-04-09] MEDS: HYDROCODONE/ACETAMINOPHEN 10/325MG TABLET PO PRN ×2 (10:38→16:48)
[2023-04-09 12:00] VITALS: BP 98/53; PULSE 84; RESP 18; TEMP 97.7
[2023-04-09 16:00] VITALS: BP 94/54; PULSE 64; RESP 18; TEMP 99.3
[2023-04-09 20:00] VITALS: BP 96/45; PULSE 74; RESP 18; TEMP 98.8
[2023-04-09] MEDS: SERTRALINE HCL 25MG TABLET PO SCH (20:53)
[2023-04-09] MEDS: INSULIN GLARGINE 100 UNITS/ML SUBCUT SCH (21:24)
[2023-04-10] VITALS: BP 96/52; PULSE 69; RESP 17; TEMP 98.1
[2023-04-10 04:00] VITALS: BP 115/86; PULSE 74; RESP 17; TEMP 99.3
[2023-04-10] MEDS: HYDROMORPHONE HCL/PF 2MG/ML CPJ IV PRN ×3 (04:21→17:20)
[2023-04-10] MEDS: CEFAZOLIN 2,000 MG in DEXT 5% WATER 100 ML IV SCH ×3 (06:42→21:44)
[2023-04-10] MEDS: INSULIN LISPRO 100 UNITS/ML SUBCUT SCH ×4 (06:46→21:06)
[2023-04-10] MEDS: BLOOD SUGAR DIAGNOSTIC STRIP TEST SCH ×4 (06:46→19:35)
[2023-04-10 08:00] VITALS: BP 96/54; PULSE 64; RESP 18; TEMP 98.2
[2023-04-10] MEDS: ENOXAPARIN 40MG/0.4ML SYR SUBCUT SCH (08:16)
[2023-04-10] MEDS: MIDODRINE HCL 5MG TABLET PO SCH ×3 (08:16→17:20)
[2023-04-10 12:00] VITALS: BP 98/59; PULSE 70; RESP 18; TEMP 98.5
[2023-04-10] MEDS: HYDROCODONE/ACETAMINOPHEN 10/325MG TABLET PO PRN (13:39)
[2023-04-10 16:00] VITALS: BP 97/56; PULSE 70; RESP 18; TEMP 98
[2023-04-10 20:00] VITALS: BP 117/62; PULSE 66; RESP 18; TEMP 97.9
[2023-04-10] MEDS: SERTRALINE HCL 25MG TABLET PO SCH (20:53)
[2023-04-10] MEDS: INSULIN GLARGINE 100 UNITS/ML SUBCUT SCH (21:06)
[2023-04-11] VITALS: BP 113/69; PULSE 68; RESP 17; TEMP 98.1
[2023-04-11] MEDS: HYDROMORPHONE HCL/PF 2MG/ML CPJ IV PRN ×4 (00:08→22:55)
[2023-04-11 04:00] VITALS: BP 104/61; PULSE 78; RESP 17; TEMP 97.5
[2023-04-11] MEDS: BLOOD SUGAR DIAGNOSTIC STRIP TEST SCH ×5 (04:46→21:30)
[2023-04-11] MEDS: CEFAZOLIN 2,000 MG in DEXT 5% WATER 100 ML IV SCH ×2 (05:48→21:30)
[2023-04-11] MEDS: INSULIN LISPRO 100 UNITS/ML SUBCUT SCH ×4 (06:09→22:03)
[2023-04-11 16:00] VITALS: BP 94/58; PULSE 69; RESP 18; TEMP 98.1
[2023-04-11] MEDS: HYDROCODONE/ACETAMINOPHEN 10/325MG TABLET PO PRN (17:55)
[2023-04-11 20:00] VITALS: BP 111/74; PULSE 87; RESP 20; TEMP 98.9
[2023-04-11] MEDS: SERTRALINE HCL 25MG TABLET PO SCH ×2 (21:00→21:30)
[2023-04-11] MEDS: INSULIN GLARGINE 100 UNITS/ML SUBCUT SCH (22:12)
[2023-04-12] VITALS: BP 102/57; PULSE 69; RESP 20; TEMP 98.8
[2023-04-12 04:00] VITALS: BP 136/84; PULSE 63; RESP 20; TEMP 98.7
[2023-04-12] MEDS: CEFAZOLIN 2,000 MG in DEXT 5% WATER 100 ML IV SCH ×3 (05:45→22:17)
[2023-04-12] MEDS: HYDROMORPHONE HCL/PF 2MG/ML CPJ IV PRN ×3 (06:05→18:23)
[2023-04-12] MEDS: BLOOD SUGAR DIAGNOSTIC STRIP TEST SCH ×4 (07:20→21:00)
[2023-04-12 08:00] VITALS: BP 83/44; PULSE 65; RESP 18; TEMP 97.9
[2023-04-12] MEDS: MIDODRINE HCL 5MG TABLET PO SCH ×3 (08:24→18:22)
[2023-04-12] MEDS: ENOXAPARIN 40MG/0.4ML SYR SUBCUT SCH (08:25)
[2023-04-12] MEDS: INSULIN LISPRO 100 UNITS/ML SUBCUT SCH ×4 (08:27→22:33)
[2023-04-12 12:00] VITALS: BP 113/69; PULSE 69; RESP 18; TEMP 98.6
[2023-04-12 16:00] VITALS: BP 100/59; PULSE 68; RESP 18; TEMP 97.9
[2023-04-12 20:00] VITALS: BP 100/60; PULSE 79; RESP 18; TEMP 99
[2023-04-12] MEDS: SERTRALINE HCL 25MG TABLET PO SCH (22:17)
[2023-04-12] MEDS: INSULIN GLARGINE 100 UNITS/ML SUBCUT SCH (22:33)
[2023-04-13] MEDS: HYDROMORPHONE HCL/PF 2MG/ML CPJ IV PRN ×2 (01:01→11:51)
[2023-04-13 04:00] VITALS: BP 104/69; PULSE 77; RESP 18; TEMP 97.8
[2023-04-13] MEDS: CEFAZOLIN 2,000 MG in DEXT 5% WATER 100 ML IV SCH ×3 (05:35→21:27)
[2023-04-13] MEDS: BLOOD SUGAR DIAGNOSTIC STRIP TEST SCH ×4 (07:20→21:00)
[2023-04-13 08:00] VITALS: BP 113/75; PULSE 72; RESP 19; TEMP 97.7
[2023-04-13] MEDS: MIDODRINE HCL 5MG TABLET PO SCH ×3 (08:21→18:23)
[2023-04-13] MEDS: ENOXAPARIN 40MG/0.4ML SYR SUBCUT SCH (08:21)
[2023-04-13] MEDS: INSULIN LISPRO 100 UNITS/ML SUBCUT SCH ×4 (08:26→21:34)
[2023-04-13 12:00] VITALS: BP 84/58; PULSE 77; RESP 18; TEMP 97.8
[2023-04-13 16:00] VITALS: BP 88/54; PULSE 73; RESP 18; TEMP 98.2
[2023-04-13 20:00] VITALS: PULSE 72; RESP 18; TEMP 98
[2023-04-13] MEDS: MORPHINE SULFATE 4 MG/ML CPJ (NOT FOR IM USE) IV PRN (21:14)
[2023-04-13] MEDS: SERTRALINE HCL 25MG TABLET PO SCH (21:24)
[2023-04-13] MEDS: INSULIN GLARGINE 100 UNITS/ML SUBCUT SCH (21:34)
[2023-04-14] VITALS: BP 118/65; PULSE 72; RESP 18; TEMP 97.8
[2023-04-14] MEDS: HYDROCODONE/ACETAMINOPHEN 10/325MG TABLET PO PRN ×2 (00:02→06:03)
[2023-04-14] MEDS: MORPHINE SULFATE 4 MG/ML CPJ (NOT FOR IM USE) IV PRN ×3 (03:11→17:45)
[2023-04-14] MEDS: CEFAZOLIN 2,000 MG in DEXT 5% WATER 100 ML IV SCH ×3 (05:34→22:22)
[2023-04-14] MEDS: BLOOD SUGAR DIAGNOSTIC STRIP TEST SCH ×4 (07:58→21:00)
[2023-04-14 08:00] VITALS: BP 100/65; PULSE 72; RESP 18; TEMP 97.9
[2023-04-14] MEDS: MIDODRINE HCL 5MG TABLET PO SCH ×3 (08:54→17:56)
[2023-04-14] MEDS: ENOXAPARIN 40MG/0.4ML SYR SUBCUT SCH (08:54)
[2023-04-14] MEDS: INSULIN LISPRO 100 UNITS/ML SUBCUT SCH ×4 (09:02→21:00)
[2023-04-14 12:00] VITALS: BP 96/63; PULSE 68; RESP 18; TEMP 98.1
[2023-04-14] MEDS: ACETAMINOPHEN 325MG TABLET PO PRN (13:30)
[2023-04-14 16:00] VITALS: BP 107/67; PULSE 88; RESP 18; TEMP 98.2
[2023-04-14] MEDS ORDERED: NALOXONE HCL 0.4MG/ML VIAL IV PRN (18:30)
[2023-04-14 20:00] VITALS: BP 88/55; PULSE 68; RESP 19; TEMP 97.9
[2023-04-14] MEDS: SERTRALINE HCL 25MG TABLET PO SCH (21:00)
[2023-04-14] MEDS: INSULIN GLARGINE 100 UNITS/ML SUBCUT SCH (22:29)
[2023-04-15] VITALS: BP 92/52; PULSE 69; RESP 18; TEMP 97.5
[2023-04-15] MEDS: MORPHINE SULFATE 4 MG/ML CPJ (NOT FOR IM USE) IV PRN ×4 (00:47→21:19)
[2023-04-15 04:00] VITALS: BP 90/61; PULSE 73; RESP 19; TEMP 98.1
[2023-04-15] MEDS: CEFAZOLIN 2,000 MG in DEXT 5% WATER 100 ML IV SCH ×3 (06:45→21:29)
[2023-04-15] MEDS: INSULIN LISPRO 100 UNITS/ML SUBCUT SCH ×4 (07:05→21:55)
[2023-04-15] MEDS: BLOOD SUGAR DIAGNOSTIC STRIP TEST SCH ×4 (07:14→21:36)
[2023-04-15 08:00] VITALS: BP 97/61; PULSE 68; RESP 16; TEMP 97.1
[2023-04-15] MEDS: MIDODRINE HCL 5MG TABLET PO SCH ×3 (09:00→18:02)
[2023-04-15] MEDS: ENOXAPARIN 40MG/0.4ML SYR SUBCUT SCH (09:01)
[2023-04-15 12:00] VITALS: BP 100/58; PULSE 70; RESP 16; TEMP 96.5
[2023-04-15] MEDS: ACETAMINOPHEN 325MG TABLET PO PRN (13:04)
[2023-04-15 16:00] VITALS: BP 99/60; PULSE 68; RESP 16; TEMP 96.3
[2023-04-15 20:00] VITALS: BP 100/54; PULSE 73; RESP 20; TEMP 99.1
[2023-04-15] MEDS: SERTRALINE HCL 25MG TABLET PO SCH (21:22)
[2023-04-15] MEDS: INSULIN GLARGINE 100 UNITS/ML SUBCUT SCH (21:54)
[2023-04-16] VITALS: BP 103/64; PULSE 76; RESP 20; TEMP 98.6
[2023-04-16] MEDS: MORPHINE SULFATE 4 MG/ML CPJ (NOT FOR IM USE) IV PRN ×2 (03:59→10:52)
[2023-04-16 04:00] VITALS: BP 105/73; PULSE 66; RESP 20; TEMP 98.1
[2023-04-16] MEDS: CEFAZOLIN 2,000 MG in DEXT 5% WATER 100 ML IV SCH ×3 (05:35→22:04)
[2023-04-16] MEDS: BLOOD SUGAR DIAGNOSTIC STRIP TEST SCH ×4 (05:47→21:00)
[2023-04-16 08:00] VITALS: BP 94/56; PULSE 64; RESP 19; TEMP 97.2
[2023-04-16] MEDS: ENOXAPARIN 40MG/0.4ML SYR SUBCUT SCH (08:13)
[2023-04-16] MEDS: MIDODRINE HCL 5MG TABLET PO SCH ×3 (08:14→18:00)
[2023-04-16] MEDS: INSULIN LISPRO 100 UNITS/ML SUBCUT SCH ×4 (08:23→22:02)
[2023-04-16 12:00] VITALS: BP 96/48; PULSE 71; RESP 18; TEMP 97.9
[2023-04-16] MEDS: LIDOCAINE 5% PATCH TOP SCH (12:45)
[2023-04-16] MEDS: GABAPENTIN 100MG CAPSULE PO SCH ×2 (15:28→21:59)
[2023-04-16 16:28] VITALS: BP 96/48; PULSE 71; RESP 18; TEMP 97.9
[2023-04-16] MEDS: ACETAMINOPHEN 325MG TABLET PO PRN (18:00)
[2023-04-16 20:00] VITALS: BP 90/51; PULSE 69; RESP 21; TEMP 97.2
[2023-04-16] MEDS: SERTRALINE HCL 25MG TABLET PO SCH (21:59)
[2023-04-16] MEDS: INSULIN GLARGINE 100 UNITS/ML SUBCUT SCH (22:01)
[2023-04-17] VITALS (7 sets, daily range): BP systolic 88–115; BP diastolic 55–77; PULSE 64–72; RESP 17–19; TEMP 97.5–99.7
[2023-04-17] MEDS: CEFAZOLIN 2,000 MG in DEXT 5% WATER 100 ML IV SCH ×3 (05:27→22:03)
[2023-04-17] MEDS: GABAPENTIN 100MG CAPSULE PO SCH ×4 (05:27→22:03)
[2023-04-17 06:28] LABS: HEMATOCRIT 35.1 % (42.0-52.0); HEMOGLOBIN 11.5 g/dL (14.0-18.0); MEAN CORPUSCULAR HEMOGLOBIN 26.2 pg (28.0-32.0); MEAN CORPUSCULAR VOLUME 79.8 fL (80.0-94.0); PLATELET 218 x1000/uL (130-400); RED CELL DISTRIBUTION WIDTH 19.1 % (11.6-14.6)
[2023-04-17 07:05] LABS: CHLORIDE 106 mEq/L (98-107)
[2023-04-17] MEDS: BLOOD SUGAR DIAGNOSTIC STRIP TEST SCH ×4 (07:30→21:00)
[2023-04-17] MEDS: MIDODRINE HCL 5MG TABLET PO SCH ×3 (08:30→16:53)
[2023-04-17] MEDS: ENOXAPARIN 40MG/0.4ML SYR SUBCUT SCH (08:31)
[2023-04-17] MEDS: LIDOCAINE 5% PATCH TOP SCH (08:31)
[2023-04-17] MEDS: INSULIN LISPRO 100 UNITS/ML SUBCUT SCH ×4 (09:01→22:02)
[2023-04-17] MEDS: ACETAMINOPHEN 325MG TABLET PO PRN ×2 (10:00→16:53)
[2023-04-17] MEDS: INSULIN GLARGINE 100 UNITS/ML SUBCUT SCH (22:01)
[2023-04-17] MEDS: SERTRALINE HCL 25MG TABLET PO SCH (22:03)
[2023-04-18] VITALS: BP 104/67; PULSE 76; RESP 19; TEMP 97.5
[2023-04-18 04:00] VITALS: BP 117/77; PULSE 76; RESP 19; TEMP 96.8
[2023-04-18] MEDS: CEFAZOLIN 2,000 MG in DEXT 5% WATER 100 ML IV SCH ×3 (05:26→21:45)
[2023-04-18] MEDS: GABAPENTIN 100MG CAPSULE PO SCH ×3 (05:26→21:45)
[2023-04-18] MEDS: BLOOD SUGAR DIAGNOSTIC STRIP TEST SCH ×4 (05:26→21:00)
[2023-04-18] MEDS: INSULIN LISPRO 100 UNITS/ML SUBCUT SCH ×4 (07:50→21:52)
[2023-04-18 08:00] VITALS: BP 113/67; PULSE 82; RESP 19; TEMP 97.7
[2023-04-18] MEDS: LIDOCAINE 5% PATCH TOP SCH (09:00)
[2023-04-18] MEDS: MIDODRINE HCL 5MG TABLET PO SCH ×3 (09:08→18:59)
[2023-04-18] MEDS: ENOXAPARIN 40MG/0.4ML SYR SUBCUT SCH (09:09)
[2023-04-18 12:00] VITALS: BP 94/58; PULSE 73; RESP 19; TEMP 98.6
[2023-04-18] MEDS: ACETAMINOPHEN 325MG TABLET PO PRN ×2 (12:10→19:04)
[2023-04-18] MEDS ORDERED: SERT25TA74 PO (15:06)
[2023-04-18] MEDS ORDERED: CEFA2PLA9 IV (15:06)
[2023-04-18] MEDS ORDERED: GABA-529 PO (15:06)
[2023-04-18] MEDS ORDERED: LANTUSUD SUBCUT (15:06)
[2023-04-18 16:00] VITALS: BP 98/60; PULSE 71; RESP 18; TEMP 97.5
[2023-04-18 20:00] VITALS: BP 98/64; PULSE 89; RESP 18; TEMP 97.9
[2023-04-18] MEDS: SERTRALINE HCL 25MG TABLET PO SCH (21:45)
[2023-04-18] MEDS: INSULIN GLARGINE 100 UNITS/ML SUBCUT SCH (21:52)
[2023-04-19] VITALS: BP 99/63; PULSE 85; RESP 20; TEMP 97.9
[2023-04-19] MEDS: CEFAZOLIN 2,000 MG in DEXT 5% WATER 100 ML IV SCH ×3 (06:55→22:00)
[2023-04-19] MEDS: GABAPENTIN 100MG CAPSULE PO SCH ×3 (06:55→21:56)
[2023-04-19] MEDS: BLOOD SUGAR DIAGNOSTIC STRIP TEST SCH ×4 (07:04→17:00)
[2023-04-19] MEDS: INSULIN LISPRO 100 UNITS/ML SUBCUT SCH ×4 (07:52→22:02)
[2023-04-19 08:00] VITALS: BP 115/79; PULSE 80; RESP 17; TEMP 97.7
[2023-04-19] MEDS: MIDODRINE HCL 5MG TABLET PO SCH ×3 (09:47→16:46)
[2023-04-19] MEDS: ENOXAPARIN 40MG/0.4ML SYR SUBCUT SCH (09:47)
[2023-04-19] MEDS: LIDOCAINE 5% PATCH TOP SCH (09:49)
[2023-04-19 12:00] VITALS: BP 109/74; PULSE 77; RESP 18; TEMP 97.5
[2023-04-19 16:00] VITALS: BP 100/62; PULSE 91; RESP 18; TEMP 98.1
[2023-04-19 20:00] VITALS: BP 98/65; PULSE 100; RESP 18; TEMP 97.3
[2023-04-19] MEDS ORDERED: SERTRALINE HCL 50MG TABLET PO SCH (21:00)
[2023-04-19] MEDS: INSULIN GLARGINE 100 UNITS/ML SUBCUT SCH (22:03)
[2023-04-20] VITALS: BP 115/75; PULSE 87; RESP 19; TEMP 98.3
[2023-04-20 04:00] VITALS: BP 118/80; PULSE 79; RESP 20; TEMP 97.3
[2023-04-20] MEDS: GABAPENTIN 100MG CAPSULE PO SCH ×2 (06:21→13:29)
[2023-04-20] MEDS: CEFAZOLIN 2,000 MG in DEXT 5% WATER 100 ML IV SCH ×2 (06:21→14:02)
[2023-04-20] MEDS: BLOOD SUGAR DIAGNOSTIC STRIP TEST SCH ×2 (06:33→12:36)
[2023-04-20] MEDS: INSULIN LISPRO 100 UNITS/ML SUBCUT SCH ×4 (07:59→13:28)
[2023-04-20 08:00] VITALS: BP 111/68; PULSE 86; RESP 19; TEMP 98.1
[2023-04-20] MEDS: MIDODRINE HCL 5MG TABLET PO SCH ×2 (09:58→12:34)
[2023-04-20] MEDS: LIDOCAINE 5% PATCH TOP SCH (09:58)
[2023-04-20] MEDS: ENOXAPARIN 40MG/0.4ML SYR SUBCUT SCH (10:00)
[2023-04-20 12:00] VITALS: BP 101/64; PULSE 77; RESP 18; TEMP 97.5
[2023-04-20 13:55] VITALS: BP 101/64; PULSE 77; TEMP 97.5; O2SAT 99
== END 2023-04-20 15:00 | disposition home health service (06) | DRG 49 ==
LOC: MICUSO 22:40 → 8WST 23:35 → 6EST 04-11 11:58
PROVIDERS: ADMIT Internal Medicine; ATTEND Internal Medicine
DX: G06.2 Extradural and subdural abscess, unspecified (principal); A41.01 Sepsis due to Methicillin susceptible Staphylococcus aureus; I33.0 Acute and subacute infective endocarditis; E43 Unspecified severe protein-calorie malnutrition; K68.12 Psoas muscle abscess; I13.0 Hypertensive heart and chronic kidney disease with heart failure and stage 1 through stage 4 chronic kidney disease, or unspecified chronic kidney disease; D63.1 Anemia in chronic kidney disease; E11.22 Type 2 diabetes mellitus with diabetic chronic kidney disease; I50.22 Chronic systolic (congestive) heart failure; M46.27 Osteomyelitis of vertebra, lumbosacral region; N13.8 Other obstructive and reflux uropathy; E11.69 Type 2 diabetes mellitus with other specified complication; I71.40 Abdominal aortic aneurysm, without rupture, unspecified; M46.47 Discitis, unspecified, lumbosacral region; N18.9 Chronic kidney disease, unspecified; D50.9 Iron deficiency anemia, unspecified; N40.1 Benign prostatic hyperplasia with lower urinary tract symptoms; E87.6 Hypokalemia; F19.90 Other psychoactive substance use, unspecified, uncomplicated; F41.1 Generalized anxiety disorder; F43.10 Post-traumatic stress disorder, unspecified; E78.00 Pure hypercholesterolemia, unspecified; L03.113 Cellulitis of right upper limb; Z86.61 Personal history of infections of the central nervous system; Z88.0 Allergy status to penicillin; Z91.119 Patient's noncompliance with dietary regimen due to unspecified reason; Z59.811 Housing instability, housed, with risk of homelessness; Z79.4 Long term (current) use of insulin; Z68.22 Body mass index [BMI] 22.0-22.9, adult
CPT/HCPCS: 36415; 80048; 80053; 82962; 83036; 84145; 84443; 85025; 85027; J0690; J1170; J1650; J1815; J2270; J7060